=== PATIENT | female | born 1965 | race African-American/Black ===

== ENCOUNTER → 2018-12-27 | Outpatient (CLI) | payer BC ==
--- NOTE | 2018-12-27 14:57 | MM ---
Reason for exam: clinical finding. Last mammogram was performed 1 year and 4 months ago. History: Patient is postmenopausal. Reductions of both breasts, 1986. Taking estrogen beginning at age 51. Taking progesterone beginning at age 51. Taking other hormone beginning at age 51. Physical Findings: Nurse Summary: 1 x 1cm nodule in the right breast at 11 o'clock (nurse ts). MG 3D Diag Mammo W/Cad ALVIN Bilateral CC and MLO view(s) were taken. Prior study comparison: September 02, 2017, bilateral MG 3d diag mammo w/cad ALVIN. August 08, 2014, mammogram. There are scattered fibroglandular densities. Finding: There are typically benign round calcifications in both breasts. There is no discrete abnormality. These results were verbally communicated with the patient and result sheet given to the patient on 12/27/18. ASSESSMENT: Incomplete: need additional imaging evaluation, BI-RAD 0 RECOMMENDATION: Ultrasound of the right breast. (palpable by patient)
--- NOTE | 2018-12-27 14:59 | USB ---
Reason for exam: additional evaluation requested from abnormal screening. History: Patient is postmenopausal. Reductions of both breasts, 1986. Taking estrogen beginning at age 51. Taking progesterone beginning at age 51. Taking other hormone beginning at age 51. US Breast RT Right complete breast ultrasound includes all four quadrants, the retroareolar region and axilla. Finding demonstrates a 1.7 x 1.2 x 0.7cm oval, questionable node at 10 o'clock and a 0.9 x 0.6 x 0.7cm oval, questionable node at 10 o'clock. Possible benign lymph nodes. These results were verbally communicated with the patient and result sheet given to the patient on 12/27/18. ASSESSMENT: Probably benign, BI-RAD 3 RECOMMENDATION: Ultrasound of the right breast in 6 months.
== END ==
LOC: RADMAMWWP 13:00
PROVIDERS: ATTEND Family Medicine
DX: N63.10 Unspecified lump in the right breast, unspecified quadrant (principal)
CPT/HCPCS: 77062; 77066

== ENCOUNTER 2019-01-08 03:10 | Emergency (ER) | payer BC ==
[2019-01-08] MEDS ORDERED: FAMOTIDINE 20 MG/2 ML VIAL IV STA (03:35)
[2019-01-08] MEDS ORDERED: methylPREDNISolone SOD SUCCI 125 MG/2 ML VIAL IV STA (03:35)
--- NOTE | 2019-01-08 05:32 | ED ---
Medical Decision Making - Medical Decision Making Patient care was signed out to me by Keri Khan, nurse practitioner. Briefly, patient is a 53-year-old female. Proximally 1 hour prior to arrival patient began noticing upper lip swelling. Patient does take lisinopril. She's been on this medication for several months. Any tongue swelling or throat swelling. Patient otherwise feels well. Tolerating by mouth and having no troubles with breathing. Patient denies any allergen exposure. She did receive anti-histaminergic agents ordered by nurse practitioner prior to sign out to my care. She states her symptoms of lip swelling has cease to worsen. Patient was observed in emergency department for several hours. Patient clear for discharge. Patient told to not take lisinopril anymore. Told to follow-up with primary care physician for adjustments to blood pressure medications. Patient feels well and is agreeable to discharge. She is told to return to the emergency Department with any worsening symptoms. Told to call 911 if she is experiencing respiratory distress or feeling of impending airway closure. She is understandable and agreeable. Disposition Clinical Impression: Angioedema Disposition: HOME SELF-CARE Instructions (If sedation given, give patient instructions): Angioedema (ED) Is patient prescribed a controlled substance at d/c from ED?: No Referrals: Yessica Herrmann MD [Primary Care Provider] - 1-2 days Time of Disposition: 07:03
--- NOTE | 2019-01-08 05:38 | ED ---
General Adult HPI - General Chief complaint: Allergic Reaction Stated complaint: Swollen Lip Poss Allergic Reaction Time Seen by Provider: 01/08/19 03:31 Source: patient Mode of arrival: ambulatory Limitations: no limitations - History of Present Illness Initial comments: 53-year-old female patient presents to the emergency department today for evaluation of upper lip swelling. Patient states she woke from sleep around 1:00 and her upper lip was quite swollen and enlarged. Patient states prior to going to sleep she did notice some burning and tingling to the left however there is no swelling present. Patient states she did take Benadryl around 1:15 this morning. States it has not improved her symptoms at all. Patient states the only thing she had to eat today was Cheetos and steak which she has had both in the past. States that she does take lisinopril last dose being around 11:30 this morning. Patient does have a family member who has had angioedema from lisinopril in the past. She denies exposure to any other new substances. She denies any tongue or throat swelling. Denies any difficulty breathing. Denies any rash. Patient denies any recent fever, chills, chest pain, abdominal pain, nausea, vomiting, diarrhea, constipation, back pain, numbness, tingling, dizziness, weakness, hematuria, dysuria, urinary urgency, urinary frequency, headache, visual changes, or any other complaints. - Related Data Home Medications Medication Instructions Recorded Confirmed Estrogens, Conjugated [Premarin] 0.45 mg PO DAILY 09/05/15 09/05/15 FLUoxetine HCL [Sarafem] 10 mg PO DAILY 09/05/15 09/05/15 Lisinopril [Zestril] 20 mg PO DAILY 09/05/15 09/05/15 Pitavastatin Calcium [Livalo] 0.5 mg PO DAILY 09/05/15 09/05/15 Allergies Allergy/AdvReac Type Severity Reaction Status Date / Time Mushroom Allergy Itching Verified 01/08/19 03:18 shellfish derived [Shrimp] Allergy Itching Verified 01/08/19 03:18 tomato Allergy Itching Verified 01/08/19 03:18 cigarette smoke AdvReac Swelling Verified 01/08/19 03:18 Review of Systems ROS Statement: Those systems with pertinent positive or pertinent negative responses have been documented in the HPI. ROS Other: All systems not noted in ROS Statement are negative. Past Medical History Past Medical History: Hyperlipidemia, Hypertension History of Any Multi-Drug Resistant Organisms: None Reported Past Surgical History: Adenoidectomy, Section, Hysterectomy, Tonsillectomy Additional Past Surgical History / Comment(s): breast reduction, tummy tuck Past Psychological History: No Psychological Hx Reported Smoking Status: Never smoker Past Alcohol Use History: Occasional Past Drug Use History: None Reported General Exam Limitations: no limitations General appearance: alert, in no apparent distress, other (Physical well- developed, well-nourished adult female patient in no acute distress. Vital signs upon presentation are temperature 98.3F, pulse 64, respirations 16, blood pressure 140/67, pulse ox 98% on room air.) Eye exam: Present: normal appearance, PERRL, EOMI. Absent: scleral icterus, conjunctival injection, periorbital swelling ENT exam: Present: normal oropharynx, mucous membranes moist, other (Angioedema to the upper lip). Absent: normal exam Respiratory exam: Present: normal lung sounds bilaterally. Absent: respiratory distress, wheezes, rales, rhonchi, stridor Cardiovascular Exam: Present: regular rate, normal rhythm, normal heart sounds. Absent: systolic murmur, diastolic murmur, rubs, gallop, clicks GI/Abdominal exam: Present: soft, normal bowel sounds. Absent: distended, tenderness, guarding, rebound, rigid Neurological exam: Present: alert, oriented X3, CN II-XII intact Psychiatric exam: Present: normal affect, normal mood Skin exam: Present: warm, dry, intact, normal color. Absent: rash Course Vital Signs 01/08/19 01/08/19 03:12 07:02 Temperature 98.3 F 98.5 F Pulse Rate 64 66 Respiratory 16 17 Rate Blood Pressure 140/67 160/91 O2 Sat by Pulse 98 98 Oximetry Medical Decision Making - Medical Decision Making Care was handed over to my attending Dr. Ho 0600 to follow until disposition. Disposition Clinical Impression: Angioedema Disposition: HOME SELF-CARE Instructions (If sedation given, give patient instructions): Angioedema (ED) Is patient prescribed a controlled substance at d/c from ED?: No Referrals: Yessica Herrmann MD [Primary Care Provider] - 1-2 days
[2019-01-08 07:02] VITALS: BP 160/91; PULSE 66; RESP 17; TEMP 98.5
== END 2019-01-08 07:27 | disposition home or self-care (01) ==
LOC: EC 03:10
DX: T78.3XXA Angioneurotic edema, initial encounter (principal); E78.5 Hyperlipidemia, unspecified; I10 Essential (primary) hypertension; Z84.89 Family history of other specified conditions; Z79.890 Hormone replacement therapy; Z79.899 Other long term (current) drug therapy; Z91.018 Allergy to other foods; Z91.013 Allergy to seafood; Z91.048 Other nonmedicinal substance allergy status
CPT/HCPCS: 99284; 96374; 96375; J2930

== ENCOUNTER → 2019-08-08 | Outpatient (CLI) | payer BC ==
--- NOTE | 2019-08-09 09:05 | USB ---
Reason for exam: follow-up at short interval from prior study. History: Patient is postmenopausal. Reductions of both breasts, 1986. Taking estrogen beginning at age 51. Taking progesterone beginning at age 51. Taking other hormone beginning at age 51. Physical Findings: Nurse Summary: 1cm nodule at 9 o'clock and 10 o'clock (nurse dw). US Breast Limited RT Right limited breast ultrasound including focal area of concern, retroareolar and axilla demonstrates a 0.9 x 0.4 x 0.5cm lymph node at 10 o'clock and a 1.0 x 0.5 x 0.5cm lymph node at 10 o'clock. These results were verbally communicated with the patient and result sheet given to the patient on 08/08/19. ASSESSMENT: Benign, BI-RAD 2 RECOMMENDATION: Routine screening mammogram of both breasts in 4 months. Back on schedule for December 2019.
== END | disposition home or self-care (01) ==
LOC: RADUSWWP 14:27
PROVIDERS: ATTEND Family Medicine
DX: R92.8 Other abnormal and inconclusive findings on diagnostic imaging of breast (principal); R92.2 Inconclusive mammogram

== ENCOUNTER 2020-08-18 23:09 | Observation (INO) | payer BC ==
[2020-08-18] MEDS ORDERED: ASPIRIN 81 MG PO STA (23:36)
[2020-08-18] MEDS ORDERED: SODIUM CHLORIDE 0.9% 500 ML 500 ML IV STA (23:37)
[2020-08-18] MEDS ORDERED: PANTOPRAZOLE 40 MG/10 ML VIAL IVP STA (23:37)
[2020-08-19 00:08] LABS: Basophils % (A) 0 %; Eosinophils # (A) 0.2 k/uL (0-0.7); Eosinophils % (A) 2 %; HCT 36.8 % (34.0-46.0); HGB 11.5 gm/dL (11.4-16.0); Lymphocytes # (A) 3.9 k/uL (1.0-4.8); Lymphocytes % (A) 40 %; MCH 28.1 pg (25.0-35.0); MCHC 31.3 g/dL (31.0-37.0); MCV 89.9 fL (80.0-100.0); Mean Platelet Volume 7.1; Monocytes # (A) 0.5 k/uL (0-1.0); Monocytes % (A) 5 %; Neutrophils # (A) 5.1 k/uL (1.3-7.7); Neutrophils % (A) 52 %; Platelet Count 304 k/uL (150-450); RDW 14.5 % (11.5-15.5); WBC 9.9 k/uL (3.8-10.6)
[2020-08-19 00:20] LABS: INR 0.9 (<1.2); Partial Thromboplastin Time 25.8 sec (22.0-30.0); Prothrombin Time 9.6 sec (9.0-12.0)
[2020-08-19 00:22] LABS: ALT <6 U/L (4-34); AST 17 U/L (14-36); African American GFR (CKD) >90 (>60 ml/min/1.73 sqM); Albumin 3.6 g/dL (3.5-5.0); Alkaline Phosphatase 65 U/L (38-126); Anion Gap 3 mmol/L; Blood Urea Nitrogen 11 mg/dL (7-17); Calcium 9.5 mg/dL (8.4-10.2); Carbon Dioxide 25 mmol/L (22-30); Chloride 108 mmol/L (98-107); Glucose 102 mg/dL (74-99); Non-African American GFR(CKD) >90 (>60 ml/min/1.73 sqM); Sodium 136 mmol/L (137-145); Total Bilirubin 0.3 mg/dL (0.2-1.3); Total Protein 6.6 g/dL (6.3-8.2)
--- NOTE | 2020-08-19 00:28 | XR ---
EXAM: XR Chest, 2 Views CLINICAL HISTORY: ITS.REASON XR Reason: Chest Pain TECHNIQUE: Frontal and lateral views of the chest. COMPARISON: 09/06/2012. FINDINGS: Lungs: The lungs are well aerated. Pleural space: Unremarkable. No pneumothorax. Heart: Cardiomediastinal silhouette unremarkable. Mediastinum: See above. Bones/joints: Osteopenia. Very gentle levoscoliosis of the thoracic spine. IMPRESSION: No active disease.
--- NOTE | 2020-08-19 00:45 | ED ---
Chest Pain HPI - General Chief Complaint: Chest Pain Stated Complaint: Chest Pain Time Seen by Provider: 08/18/20 23:24 Source: patient Mode of arrival: wheelchair - History of Present Illness Initial Comments: Patient is a 55-year-old female presenting to the emergency Department with complaints of intermittent chest pain has been going on for the last 2-3 days. Patient states she feels like it's located at the center of her chest, lower near her epigastric area but also some radiation to the left side of her chest. Patient states it happened again this evening and it was more severe in nature so she decided to come in to the ER to be seen. Patient states that when she has been eating or drinking she feels "a lump in the middle of her chest." She states she doesn't feel A pain or burning sensation, just a "different sensation." She denies history of GERD. She denies any abdominal pain except for some mild epigastric discomfort. She denies any recent fever, chills, shortness of breath, chest congestion. She has no further complaints at this time. Upon arrival to the ER her vital signs are stable. - Related Data Home Medications Medication Instructions Recorded Confirmed Estrogens, Conjugated [Premarin] 0.45 mg PO DAILY 09/05/15 09/05/15 FLUoxetine HCL [Sarafem] 10 mg PO DAILY 09/05/15 09/05/15 Pitavastatin Calcium [Livalo] 0.5 mg PO DAILY 09/05/15 09/05/15 lisinopriL [Zestril] 20 mg PO DAILY 09/05/15 09/05/15 Allergies Allergy/AdvReac Type Severity Reaction Status Date / Time Mushroom Allergy Itching Verified 01/08/19 03:18 shellfish derived [Shrimp] Allergy Itching Verified 01/08/19 03:18 tomato Allergy Itching Verified 01/08/19 03:18 cigarette smoke AdvReac Swelling Verified 01/08/19 03:18 Review of Systems ROS Statement: Those systems with pertinent positive or pertinent negative responses have been documented in the HPI. ROS Other: All systems not noted in ROS Statement are negative. EKG Findings - EKG Comments: EKG Findings:: Normal sinus rhythm, normal ECG, no signs of acute ischemia. Ventricular rate 66, OK interval 148, QTC 416. Past Medical History Past Medical History: Hyperlipidemia, Hypertension History of Any Multi-Drug Resistant Organisms: None Reported Past Surgical History: Adenoidectomy, Section, Hysterectomy, Tonsillectomy Additional Past Surgical History / Comment(s): breast reduction, tummy tuck Past Psychological History: No Psychological Hx Reported Smoking Status: Never smoker Past Alcohol Use History: Occasional Past Drug Use History: Marijuana General Exam - General Exam Comments Initial Comments: GENERAL: Patient is well-developed and well-nourished. Patient is nontoxic and in no acute distress. HEAD: Atraumatic, normocephalic. EYES: Pupils equal round and reactive to light, extraocular movements intact, sclera anicteric, conjunctiva are normal. Eyelids were unremarkable. ENT: TMs normal, nares patent, oropharynx clear without exudates. Moist mucous membranes. NECK: Normal range of motion, supple without lymphadenopathy or JVD. LUNGS: Unlabored respirations. Breath sounds clear to auscultation bilaterally and equal. No wheezes rales or rhonchi. HEART: Regular rate and rhythm without murmurs, rubs or gallops. ABDOMEN: Soft, nontender, normoactive bowel sounds. No guarding, no rebound. No masses appreciated. : Deferred MUSCULOSKELETAL: Normal extremities with adequate strength and normal range of motion, no pitting or edema. No clubbing or cyanosis. NEUROLOGICAL: Patient is alert and oriented x 3. Motor and sensory are also intact. Cranial nerves II through XII grossly intact. Symmetrical smile. Normal speech, normal gait. PSYCH: Normal mood, normal affect. SKIN: Warm, Dry, normal turgor, no rashes or lesions noted. Course Vital Signs 08/18/20 08/19/20 23:17 01:00 Temperature 98.7 F 97.5 F L Pulse Rate 72 61 Respiratory 18 14 Rate Blood Pressure 152/86 140/84 O2 Sat by Pulse 98 99 Oximetry Chest Pain [facility] Patient is a 55-year-old female here for increasing chest pain over the past 2-3 days, as well as some mild epigastric pain and nausea. Her EKG is normal today . Her exam is unremarkable. Her vital signs are stable. Her chest x-ray reveals no acute abnormalities. Lab work shows no acute abnormality, troponin is normal. Given patient's symptoms, I did recommend admission for serial troponins and cardiac consult. Patient is agreeable with this plan of care. Patient was accepted by Dr. Abad. Case discussed with Dr. Sullivan. Disposition Clinical Impression: Chest pain Disposition: ADMITTED IP TO THIS HOSP Condition: Stable Decision Date: 08/19/20 Decision Time: 01:19
[2020-08-19] MEDS ORDERED: NITROGLYCERIN SL TABS 0.4 MG TAB SUBLINGUAL PRN (01:17)
[2020-08-19] MEDS ORDERED: tiZANidine 4 MG TAB PO PRN (08:55)
[2020-08-19] MEDS ORDERED: ALPRAZolam 0.25 MG TAB PO PRN (08:55)
[2020-08-19] MEDS ORDERED: amLODIPine 5 MG TAB PO SCH (09:00)
[2020-08-19] MEDS ORDERED: ATORVASTATIN 10 MG TAB PO SCH (09:00)
[2020-08-19] MEDS ORDERED: PREGABALIN 50 MG CAP PO SCH (09:00)
[2020-08-19 09:04] VITALS: RESP 18
[2020-08-19 09:15] VITALS: BP 142/71; PULSE 67; TEMP 97.7
--- NOTE | 2020-08-19 10:02 | P.CRDCN ---
<Ariela Sanchez - Last Filed: 08/19/20 09:59> History of Present Illness Consult date: 08/19/20 History of present illness: CHIEF COMPLAINT: chest pain HISTORY OF PRESENT ILLNESS: This is a 55-year old female with a past medical history significant for hypertension. Patient does not follow with a spud driller. She denies previous cardiac history. We have been asked to see the patient in consultation for chest pain. Patient reports she has been having chest pain intermittently for the last two days. She reports that she initially thought she was having heartburn. She states the pain came on when she was sitting watching TV. She denies having pain like this in the past. She states pain is located near the epigastric region and radiates under her left breast and into her back. She reports some mild nausea and shortness of breath. She d enies any diaphoresis. She describes the pain as a sharp pain. No pain with palpation. Patient reports the pain is worse with deep inspiration. She denies any heavy lifting recently. DIAGNOSTICS: EKG reveals sinus rhythm Chest xray negative for acute process Laboratory data: WBC 9.9. Hemoglobin 11.1. Platelet count 304. Sodium 136. Potassium 4.0. BUN 11. Creatinine 0.72. Magnesium 2.0. Troponin negative 3. Current home cardiac medications include Norvasc 5 mg daily REVIEW OF SYSTEMS: At the time of my exam: CONSTITUTIONAL: Denies fever or chills. HEENT: Denies blurred vision, vision changes, or eye pain. Denies hemoptysis CARDIOVASCULAR: Denies chest pain, orthopnea, PND or palpitations RESPIRATORY: No shortness of breath. GASTROINTESTINAL: Denies abdominal pain. Denies nausea or vomiting. HEMATOLOGIC: Denies bleeding disorders. GENITOURINARY: Denies any blood in urine. SKIN: Denies pruitis. Denies rash. PHYSICAL EXAM: VITAL SIGNS: Reviewed. GENERAL: Well-developed in no acute distress. HEENT: Head is normocephalic. Pupils are equal, round. Sclerae anicteric. Mucous membranes of the mouth are moist. Neck supple. No JVD or thyromegaly LUNGS: Respirations even and unlabored. Lungs essentially clear to auscultation bilaterally. HEART: Regular rate and rhythm. S1 and S2 heard. ABDOMEN: Soft. Nondistended. Nontender. EXTREMITIES: Normal range of motion. No clubbing or cyanosis. Peripheral puls es intact. No lower extremity edema NEUROLOGIC: Awake and alert. Oriented x 3. ASSESSMENT: Chest pain, no evidence of acute coronary syndrome Hypertension PLAN: Resume home cardiac medications Obtain 2-D echo to assess cardiac structure and function Patient to undergo stress echo today to assess for reversible ischemia. If negative, patient may be discharged home today from a cardiac perspective. Nurse practitioner note has been reviewed by physician. Signing provider agrees with the documented findings, assessment, and plan of care. Past Medical History Past Medical History: Hyperlipidemia, Hypertension History of Any Multi-Drug Resistant Organisms: None Reported Past Surgical History: Adenoidectomy, Section, Hysterectomy, Tonsillectomy Additional Past Surgical History / Comment(s): breast reduction, tummy tuck Past Psychological History: No Psychological Hx Reported Smoking Status: Never smoker Past Alcohol Use History: Occasional Past Drug Use History: Marijuana Medications and Allergies Home Medications Medication Instructions Recorded Confirmed Type ALPRAZolam [Xanax] 0.25 mg PO TID PRN 08/19/20 08/19/20 History Biotin 5 mg PO DAILY 08/19/20 08/19/20 History Doxepin HCl 75 mg PO HS PRN 08/19/20 08/19/20 History Ergocalciferol [Vitamin D2 50,000 unit PO MALIN 08/19/20 08/19/20 History (DRISDOL)] Estrogens, Conjugated [Premarin] 0.625 mg PO DAILY 08/19/20 08/19/20 History Magnesium Gluconate [Magonate] 500 mg PO DAILY 08/19/20 08/19/20 History Naproxen Sodium [Aleve] 220 mg PO Q12HR #14 tab 08/19/20 Rx Pitavastatin Calcium [Livalo] 2 mg PO DAILY 08/19/20 08/19/20 History Pregabalin [Lyrica] 50 mg PO BID 08/19/20 08/19/20 History amLODIPine [Norvasc] 5 mg PO DAILY 08/19/20 08/19/20 History tiZANidine HCL [Zanaflex] 2 mg PO Q8H PRN 08/19/20 08/19/20 History Allergies Allergy/AdvReac Type Severity Reaction Status Date / Time Mushroom Allergy Itching Verified 08/19/20 07:50 shellfish derived [Shrimp] Allergy Itching Verified 08/19/20 07:50 tomato Allergy Itching Verified 08/19/20 07:50 cigarette smoke AdvReac Swelling Verified 08/19/20 07:50 Physical Exam Vitals: Vital Signs Temp Pulse Pulse Resp BP BP Pulse Ox 08/19/20 02:30 62 08/19/20 01:46 97.7 F 62 16 135/65 97 08/19/20 01:00 97.5 F L 61 14 140/84 99 08/18/20 23:17 98.7 F 72 18 152/86 98 Intake and Output 08/18/20 08/19/20 08/19/20 22:59 06:59 14:59 Other: # Voids 1 Weight 86.183 kg Results 08/18/20 23:57 08/18/20 23:57 Cardiac Enzymes 08/18/20 08/18/20 08/19/20 Range/Units 23:57 23:57 02:42 AST 17 (14-36) U/L Troponin I <0.012 <0.012 (0.000-0.034) ng/mL 08/19/20 Range/Units 06:12 AST (14-36) U/L Troponin I <0.012 (0.000-0.034) ng/mL Coagulation 08/18/20 Range/Units 23:57 PT 9.6 (9.0-12.0) sec APTT 25.8 (22.0-30.0) sec CBC 08/18/20 Range/Units 23:57 WBC 9.9 (3.8-10.6) k/uL RBC 4.10 (3.80-5.40) m/uL Hgb 11.5 (11.4-16.0) gm/dL Hct 36.8 (34.0-46.0) % Plt Count 304 (150-450) k/uL Comprehensive Metabolic Panel 08/18/20 Range/Units 23:57 Sodium 136 L (137-145) mmol/L Potassium 4.0 (3.5-5.1) mmol/L Chloride 108 H (98-107) mmol/L Carbon Dioxide 25 (22-30) mmol/L BUN 11 (7-17) mg/dL Creatinine 0.72 (0.52-1.04) mg/dL Glucose 102 H (74-99) mg/dL Calcium 9.5 (8.4-10.2) mg/dL AST 17 (14-36) U/L ALT <6 (4-34) U/L Alkaline Phosphatase 65 (38-126) U/L Total Protein 6.6 (6.3-8.2) g/dL Albumin 3.6 (3.5-5.0) g/dL Current Medications Generic Name Dose Route Start Last Admin Trade Name Freq PRN Reason Stop Dose Admin Aspirin 325 mg 08/20/20 09:00 Aspirin 325 Mg Tab PO DAILY [facility] Nitroglycerin 0.4 mg 08/19/20 01:17 Nitroglycerin Sl Tabs 0.4 Mg Tab SUBLINGUAL Q5M PRN Chest Pain Intake and Output 08/18/20 08/19/20 08/19/20 22:59 06:59 14:59 Other: # Voids 1 Weight 86.183 kg 08/18/20 23:57 08/18/20 23:57 <Taz Joshi - Last Filed: 08/19/20 11:56> Physical Exam Vitals: Vital Signs Temp Pulse Pulse Resp BP BP Pulse Ox 08/19/20 09:00 97.7 F 67 18 142/71 99 08/19/20 02:30 62 08/19/20 01:46 97.7 F 62 16 135/65 97 08/19/20 01:00 97.5 F L 61 14 140/84 99 08/18/20 23:17 98.7 F 72 18 152/86 98 Intake and Output 08/18/20 08/19/20 08/19/20 22:59 06:59 14:59 Other: # Voids 1 Weight 86.183 kg Results 08/18/20 23:57 08/18/20 23:57 Cardiac Enzymes 08/18/20 08/18/20 08/19/20 Range/Units 23:57 23:57 02:42 AST 17 (14-36) U/L Troponin I <0.012 <0.012 (0.000-0.034) ng/mL 08/19/20 Range/Units 06:12 AST (14-36) U/L Troponin I <0.012 (0.000-0.034) ng/mL Coagulation 08/18/20 Range/Units 23:57 PT 9.6 (9.0-12.0) sec APTT 25.8 (22.0-30.0) sec CBC 08/18/20 Range/Units 23:57 WBC 9.9 (3.8-10.6) k/uL RBC 4.10 (3.80-5.40) m/uL Hgb 11.5 (11.4-16.0) gm/dL Hct 36.8 (34.0-46.0) % Plt Count 304 (150-450) k/uL Comprehensive Metabolic Panel 08/18/20 Range/Units 23:57 Sodium 136 L (137-145) mmol/L Potassium 4.0 (3.5-5.1) mmol/L Chloride 108 H (98-107) mmol/L Carbon Dioxide 25 (22-30) mmol/L BUN 11 (7-17) mg/dL Creatinine 0.72 (0.52-1.04) mg/dL Glucose 102 H (74-99) mg/dL Calcium 9.5 (8.4-10.2) mg/dL AST 17 (14-36) U/L ALT <6 (4-34) U/L Alkaline Phosphatase 65 (38-126) U/L Total Protein 6.6 (6.3-8.2) g/dL Albumin 3.6 (3.5-5.0) g/dL Current Medications Generic Name Dose Route Start Last Admin Trade Name Freq PRN Reason Stop Dose Admin Alprazolam 0.25 mg 08/19/20 08:55 Alprazolam 0.25 Mg Tab PO TID PRN Anxiety Amlodipine Besylate 5 mg 08/19/20 09:00 Amlodipine 5 Mg Tab PO DAILY [facility] Atorvastatin Calcium 10 mg 08/19/20 09:00 Atorvastatin 10 Mg Tab PO DAILY [facility] Dobutamine HCl/Dextrose 500 mg 250 mls @ 25.855 mls/hr 08/19/20 11:15 / IV Solution IV 08/19/20 20:55 .[id number] ONE Protocol 10 MCG/KG/MIN Nitroglycerin 0.4 mg 08/19/20 01:17 Nitroglycerin Sl Tabs 0.4 Mg Tab SUBLINGUAL Q5M PRN Chest Pain Pregabalin 50 mg 08/19/20 09:00 Pregabalin 50 Mg Cap PO BID [facility] Tizanidine HCl 2 mg 10/19/20 08:55 Tizanidine 4 Mg Tab PO Q8H PRN Muscle Spasm Intake and Output 08/18/20 08/19/20 08/19/20 22:59 06:59 14:59 Other: # Voids 1 Weight 86.183 kg 08/18/20 23:57 08/18/20 23:57
[2020-08-19] MEDS ORDERED: DOBUTamine DRIP for NUC MED 500 MG in DEXTROSE/WATER 1 250ML.BAG IV ONE (11:15)
[2020-08-19] MEDS ORDERED: ATROPINE SULFATE 0.1 MG/ML 10ML SYRINGE ONE (11:45)
[2020-08-19] MEDS ORDERED: METOPROLOL TARTRATE 5 MG/5 ML VIAL IVP ONE (11:45)
--- NOTE | 2020-08-19 12:19 | P.HPIM ---
History of Present Illness H&P Date: 08/19/20 Chief Complaint: chest pain HISTORY AND PHYSICAL AND DISCHARGE SUMMARY: HISTORY OF PRESENT ILLNESS This is a 55-year-old black female patient of Dr. Herrmann with PMH of hypertension, hyperlipidemia, history of anemia, chronic back pain, diverticulitis, seasonal ALLERGIES, generalized anxiety disorder, recent surgery in June for hemorrhoids. Patient had onset of low sternal chest pain that started on Wednesday evening. She had been to a wine tasting and had also smoked marijuana on that evening. She denies any worsening of pain with exertion. It has been coming on and off and the mother lingered is for half hour. She also feels a somewhat in her back. The pain Waking her up all through the night. She took Rolaids which did not help. Drinking cold liquids makes her pain worse. She denies having any fever or chills, no palpitations She denies any exertional activity or food that made it worse. She had stress testing done 20 years ago which was normal. Patient came into [facility] emergency center for evaluation. CBC unremarkable. Sodium 136, potassium 4.0, chloride 108, CO2 25, BUN 11 creat inine 0.72, blood sugar 102. Liver function tests normal. Troponin negative on 3 draws. Chest x-ray showed no acute findings. Patient placed on the observation unit and cardiology consult requested. Echocardiogram reveals EF of 55-60%, borderline concentric left ventricular hypertrophy, trace mitral regurgitation, trace tricuspid regurgitation. Dobutamine Stress echocardiogram was normal. Patient discharged home in stable condition. REVIEW OF SYSTEMS Constitutional: No fever, no chills, no night sweats. No weight change. No weakness, fatigue or lethargy. EENT: No headache. No blurred vision or double vision, no loss of vision. No loss of Hearing, no ringing in the ears, no dizziness. No nasal drainage or congestion. No epistaxis. No sore throat. Lungs: No shortness of breath, cough, no sputum production. No wheezing. Cardiovascular: No chest pain, no lower extremity edema. No palpitations. No paroxysmal nocturnal dyspnea. No orthopnea. No lightheadedness or dizziness. No syncopal episodes. Abdominal: No abdominal pain. No nausea, vomiting. No diarrhea. No constipation. No bloody or tarry stools. No loss of appetite. Genitourinary: No dysuria, increased frequency, urgency. No urinary retention. Musculoskeletal: No myalgias. No muscle weakness, no gait dysfunction, no frequent falls. No back pain. No neck pain. Integumentary: No wounds, no lesions. No rash or pruritus. Neurologic: No aphasia. No facial droop. No change in mentation. No head injury. No headache. No paralysis. No paresthesia. Psychiatric: No depression. No anxiety. Endocrine: No abnormal blood sugars. No weight change. SOCIAL HISTORY The patient is a lifelong nonsmoker. She drinks alcohol occasionally. She uses marijuana occasionally and last intake was on Wednesday. She works for [employer] remotely at home. FAMILY HISTORY Father at age 83. Mother at age 72 from lung cancer. Patient has one brother with diabetes. Patient is a total of 3 sisters. One sister has lupus and is being worked up for breast cancer. Other 2 sisters have no major medical problems. Patient is 2 children with no major medical problems. PHYSICAL EXAMINATION Gen: This is a 55-year-old black female. She is resting in bed appears to be comfortable and in no acute distress. HEENT: Head is atraumatic, normocephalic. Pupils equal, round. Sclerae is anicteric. NECK: Supple. No JVD. No lymphadenopathy. No thyromegaly. LUNGS: Clear to auscultation. No wheezes or rhonchi. No intercostal retractions. Positive chest wall tenderness. HEART: Regular rate and rhythm. No murmur. ABDOMEN: Soft. Bowel sounds are present. No masses. No tenderness. EXTREMITIES: No pedal edema. No calf tenderness. Dorsalis pedis +2 bilaterally. NEUROLOGICAL: Patient is awake, alert and oriented x3. Cranial nerves 2 through 12 are grossly intact. ASSESSMENT AND PLAN 1. Chest pain, most likely secondary to costochondritis. Cardiology consult appreciated. Echocardiogram. Stress test. Aleve 220 mg twice daily. 2. Hypertension. Continue Norvasc 5 mg daily. 3. Hyperlipidemia. Continue atorvastatin 10 mg daily. 4. Generalized anxiety disorder. Continue Xanax or 0.5 mg 3 times daily as needed. 5. Chronic back pain. Continue Zanaflex 2 mg 3 times daily as needed, Lyrica 50 mg twice daily. 6. DVT prophylaxis. Early ambulation. Patient placed as Observation status. Discharge plan HOME. Impression and plan of care have been directed as dictated by the signing physician. Alessandra Willett nurse practitioner acting as scribe for signing physician. Past Medical History Past Medical History: Hyperlipidemia, Hypertension History of Any Multi-Drug Resistant Organisms: None Reported Past Surgical History: Adenoidectomy, Section, Hysterectomy, Tonsillectomy Additional Past Surgical History / Comment(s): breast reduction, tummy tuck Past Psychological History: No Psychological Hx Reported Smoking Status: Never smoker Past Alcohol Use History: Occasional Past Drug Use History: Marijuana Medications and Allergies Home Medications Medication Instructions Recorded Confirmed Type ALPRAZolam [Xanax] 0.25 mg PO TID PRN 08/19/20 08/19/20 History Biotin 5 mg PO DAILY 08/19/20 08/19/20 History Doxepin HCl 75 mg PO HS PRN 08/19/20 08/19/20 History Ergocalciferol [Vitamin D2 50,000 unit PO MALIN 08/19/20 08/19/20 History (DRISDOL)] Estrogens, Conjugated [Premarin] 0.625 mg PO DAILY 08/19/20 08/19/20 History Magnesium Gluconate [Magonate] 500 mg PO DAILY 08/19/20 08/19/20 History Naproxen Sodium [Aleve] 220 mg PO Q12HR #14 tab 08/19/20 Rx Pitavastatin Calcium [Livalo] 2 mg PO DAILY 08/19/20 08/19/20 History Pregabalin [Lyrica] 50 mg PO BID 08/19/20 08/19/20 History amLODIPine [Norvasc] 5 mg PO DAILY 08/19/20 08/19/20 History tiZANidine HCL [Zanaflex] 2 mg PO Q8H PRN 08/19/20 08/19/20 History Allergies Allergy/AdvReac Type Severity Reaction Status Date / Time Mushroom Allergy Itching Verified 08/19/20 07:50 shellfish derived [Shrimp] Allergy Itching Verified 08/19/20 07:50 tomato Allergy Itching Verified 08/19/20 07:50 cigarette smoke AdvReac Swelling Verified 08/19/20 07:50 Physical Exam Vitals: Vital Signs Temp Pulse Pulse Resp BP BP Pulse Ox 08/19/20 02:30 62 08/19/20 01:46 97.7 F 62 16 135/65 97 08/19/20 01:00 97.5 F L 61 14 140/84 99 08/18/20 23:17 98.7 F 72 18 152/86 98 Intake and Output 08/18/20 08/19/20 08/19/20 22:59 06:59 14:59 Other: # Voids 1 Weight 86.183 kg Results CBC & Chem 7: 08/18/20 23:57 08/18/20 23:57 Labs: Abnormal Lab Results - Last 24 Hours (Table) 08/18/20 Range/Units 23:57 Sodium 136 L (137-145) mmol/L Chloride 108 H (98-107) mmol/L Glucose 102 H (74-99) mg/dL Thrombosis Risk Factor Assmnt - Choose All That Apply Each Factor Represents 1 point: Age 41-60 years, Obesity (BMI >25) Other congenital or acquired thrombophilia - If yes, enter type in comment: No Thrombosis Risk Factor Assessment Total Risk Factor Score: 2 Thrombosis Risk Factor Assessment Level: Low Risk
--- NOTE | 2020-08-19 13:00 | ECHOF ---
Referral Reason:chest pain MEASUREMENTS -------- HEIGHT: 170.2 cm WEIGHT: 86.2 kg BP: 135/65 IVSd: 1.1 cm (0.6 - 1.1) LVIDd: 3.1 cm (3.9 - 5.3) LVPWd: 1.3 cm (0.6 - 1.1) IVSs: 1.6 cm LVIDs: 2.2 cm LVPWs: 1.5 cm Ao Diam: 2.6 cm (2.0 - 3.7) AV Cusp: 1.6 cm (1.5 - 2.6) LA Diam: 3.1 cm (2.7 - 3.8) MV EXCURSION: 10.759 mm (> 18.000) MV EF SLOPE: 73 mm/s (70 - 150) EPSS: 0.7 cm MV E Edmundo: 0.64 m/s MV DecT: 253 ms MV A Edmundo: 0.59 m/s MV E/A Ratio: 1.08 RAP: 5.00 mmHg RVSP: 17.13 mmHg FINDINGS -------- This was a technically difficult study with suboptimal views. The left ventricular size is normal. There is borderline concentric left ventricular hypertrophy. Overall left ventricular systolic function is normal with, an EF between 55 - 60 %. The right ventricle is normal in size. The left atrial size is normal. The right atrial size is normal. Lumason used The aortic valve is trileaflet and appears structurally normal. The mitral valve is normal. There is trace mitral regurgitation. The tricuspid valve appears structurally normal. Trace tricuspid regurgitation present. Right jas tricular systolic pressure is normal at < 35 mmHg. Pulmonic valve appears structurally normal. The aortic root size is normal. IVC Not well visulized. There is no pericardial effusion. CONCLUSIONS -------- 1. The left ventricular size is normal. 2. There is borderline concentric left ventricular hypertrophy. 3. Overall left ventricular systolic function is normal with, an EF between 55 - 60 %. 4. There is trace mitral regurgitation. 5. Trace tricuspid regurgitation present. 6. There is no pericardial effusion. EMPLOYMENT INSTRUCTIONAL ASSOCIATE: Gauri Moffett [facility]
--- NOTE | 2020-08-19 13:36 | P.STRESS ---
- Stress Test Note Stress Test Results/Findings: Exam Performed: dobutamine stress echo with con Exam Date: 08/19/20 Reason for Exam: CHEST PAIN Height: 5 ft 7 in Weight: 86.18 kg Protocol: DSE Stage: 5 Duration of Exercise: 14:45 Resting Heart Rate: 67 Resting Blood Pressure: 138/91 Maximum Achieved Heart Rate: 152 Maximum Achieved Blood Pressure: 161/78 85% PMHR: 139 100% PMHR: 164 METS: NA Technologist Comment: Stress Test Results/Findings: Patient underwent dobutamine stress echo with infusion of dobutamine into Stage 4 for a total of 14 minutes 45 seconds. Patient's maximum heart rate was 152 which represented 92% age-predicted maximum heart rate. Stress EKG portion: At baseline patient's EKG showed normal sinus rhythm, or waxes,no significant ST or T wave abnormalities.. At peak dobutamine infusion, EKG showed .[address] depressions in the inferior and lateral leads. Stress echo portion: 2-D echocardiogram was performed in the parasternal long, personal short, apical 2 and apical four-chamber views at rest, low-dose, peak infusion and in recovery. At baseline, echocardiogram showed left ventricular ejection fraction 55% without wall motion abnormalities. With peak infusion, echocardiogram shows improvement in left ventricular ejection fraction, increase contractility, decrease in left ventricular dimension without wall motion abnormalities consistent with a normal response to dobutamine. Conclusions: 1. Normal stress EKG and echo response to dobutamine infusion without any evidence of inducible ischemia.
[2020-08-20] MEDS ORDERED: ASPIRIN 325 MG TAB PO SCH (09:00)
== END 2020-08-19 15:20 | disposition home or self-care (01) ==
LOC: EC 23:09 → 1SOBS 08-19 01:18
PROVIDERS: ADMIT Family Medicine; ATTEND Family Medicine
DX: I08.1 Rheumatic disorders of both mitral and tricuspid valves (principal); Z80.1 Family history of malignant neoplasm of trachea, bronchus and lung; Z82.69 Family history of other diseases of the musculoskeletal system and connective tissue; I10 Essential (primary) hypertension; E78.5 Hyperlipidemia, unspecified; F41.1 Generalized anxiety disorder; G89.29 Other chronic pain; M54.9 Dorsalgia, unspecified; Z90.710 Acquired absence of both cervix and uterus; Z98.891 History of uterine scar from previous surgery; Z98.890 Other specified postprocedural states; Z79.1 Long term (current) use of non-steroidal anti-inflammatories (NSAID); Z79.52 Long term (current) use of systemic steroids; Z79.899 Other long term (current) drug therapy; Z91.013 Allergy to seafood; Z91.018 Allergy to other foods; Z91.048 Other nonmedicinal substance allergy status
CPT/HCPCS: 93005 ×2; 96374; 99285; 36415; 93306; 93351; 80053; 83690; 83735; 84484; 85025; 85610; 85730; 71046; G0378; J1250; J0461; C9113; Q9950

== ENCOUNTER → 2020-12-18 | Outpatient (CLI) | payer BC ==
--- NOTE | 2020-12-18 20:02 | CONS ---
CONSULTATION DATE OF SERVICE: 12/18/2020 This is a 55-year-old lady who has been evaluated in the sleep center for difficulties initiating sleep and for multiple awakenings from sleep. HISTORY OF PRESENT ILLNESS/SLEEP-WAKE EVALUATION: Patient's usual sleep schedule is from 1 or 2 a.m. until 7 or 8 a.m. on weekdays and from 2 or 3 a.m. until 10 a.m. on weekends. She does have problems with falling asleep. She has a TV set in the bedroom. She usually sleeps on the side position. She snores and wakes up from sleep about 4 times with one episode of nocturia. Questionable history of hypnagogical hallucinations. No history of sleep paralysis or cataplexy. In the morning the patient wakes up tired, worries about her sleep. She does not take any naps. [place] Sleepiness Scale is 2. PAST MEDICAL HISTORY: Positive for hypertension, depression, hyperlipidemia, arthritis. PAST SURGICAL HISTORY: Tonsillectomy, hysterectomy, breast reduction surgery, tubal ligation, two C-sections. FAMILY HISTORY: Lung problems, thyroid problems, cancer, stroke. REVIEW OF SYSTEMS: Difficulties initiating sleep and multiple awakenings from sleep. Snoring. PHYSICAL EXAMINATION: GENERAL: A pleasant -[place] lady without distress. VITAL SIGNS: BP 144/72, HR 71, RR 15, height 5 feet 7 inches, weight 189.8 pounds, temperature 98.2, oxygen saturation at room air 94%. HEENT: PERRLA, EOMI. Evaluation of oropharynx showed tongue protrudes midline. Mallampati II. NECK: Supple. No JVD. Thyroid is not palpable. LUNGS: Clear to percussion and to auscultation. Good air exchange. No wheezing or rhonchi. HEART: S1, S2 regular. No murmurs, gallops or rubs. ABDOMEN: Soft and nontender. Bowel sounds are present. No organomegaly appreciated. EXTREMITIES: No clubbing or cyanosis. TUTORIAL LABORATORY SUPERVISOR: Awake, alert, and oriented X3. Cranial nerves 2 to 7 intact. There is no fasciculation or atrophy. noted. No focal deficits observed. IMPRESSION: 1. Snoring, multiple awakenings from sleep; possible obstructive sleep apnea-hypopnea syndrome. 2. Difficulties initiating sleep; psychophysiological insomnia. 3. Hypertension. 4. Depression. 5. Status post tonsillectomy. 6. Status post hysterectomy and ectomy. 7. Status post breast reduction. 8. Hyperlipidemia. 9. Arthritis. PLAN: 1. Home sleep apnea test to check patient's breathing during sleep. 2. I discussed with the patient psychological techniques for treatment of insomnia, including stimulus control, paradoxical intention, worry time, no watching clock, regularizing sleep schedule. 3. Watching and losing weight. 4. No driving if feeling any sleepiness. 5. Sleep hygiene with regular time in bed for 7-1/2 hours. Thank you very much for referring this patient for consultation. Sincerely, Donnie Greco MD, PhD, FAASM Diplomat of [place] [employer] [place] [employer] Customer Counter Associate of [facility] [place] [facility]OD[facility] / ETELVINA: [id number] /
== END | disposition home or self-care (01) ==
LOC: SLEEP 14:07
PROVIDERS: ATTEND Internal Medicine
DX: G47.00 Insomnia, unspecified (principal); I10 Essential (primary) hypertension; F32.9 Major depressive disorder, single episode, unspecified; E78.5 Hyperlipidemia, unspecified; M19.90 Unspecified osteoarthritis, unspecified site; Z90.710 Acquired absence of both cervix and uterus; Z98.890 Other specified postprocedural states; Z90.09 Acquired absence of other part of head and neck
CPT/HCPCS: 99211

== ENCOUNTER → 2021-01-22 | Outpatient (CLI) | payer BC ==
--- NOTE | 2021-01-22 14:04 | SFUN ---
SLEEP CENTER FOLLOW UP NOTE DATE OF SERVICE: 01/22/2021 This 55-year-old lady had been followed in Sleep Center to discuss results of home sleep apnea test and following plan. I discussed results of home sleep apnea test with patient in details. Recording done for 10 hours 42 minutes. Analyzing time 10 hours 34 minutes. Totally, it was documented 36 abnormal respiratory events including 25 apneas. Total apnea-hypopnea index 3.4, but according to the patient she slept during the home test only about 5 hours. Home sleep test does not provide information about how many hours patient in reality slept. If she slept only 5 hours that will make her apnea-hypopnea index around 7 and will be significant to indicate necessity of treatment because she has several other medical problems, which could be related to sleep apnea, hypertension, depression. [place] Sleepiness Scale today is 3. MEDICATIONS: Premarin 0.625 mg once a day, amlodipine 5 mg once a day, Livalo 2 mg once a day, 10 mg once a day. PHYSICAL EXAMINATION: GENERAL: lady without distress. VITAL SIGNS: BP 128/76, HR 73, RR 15, height 5 feet 7 inches, weight 192, temperature 97.8, oxygen saturation at room air 91%. HEENT: PERRLA, EOMI, evaluation of oropharynx showed tongue protrudes midline. NECK: Supple, no JVD. Thyroid is not palpable. LUNGS: Clear to percussion and to auscultation. Good air exchange. No wheezing or rhonchi. HEART: S1, S2 regular. No murmurs, gallops, or rubs. ABDOMEN: Slightly obese. EXTREMITIES: No clubbing or cyanosis. CHEMIST PHYSICAL: Awake, alert, and oriented X3. Cranial nerves 2 to 7 intact. There is no fasciculation or atrophy. noted. No focal deficits observed. IMPRESSION: 1. Possibly false negative results of home sleep apnea test because patient has significant insomnia problems which could be the reason for underestimation of apnea-hypopnea index for obstructive sleep apnea-hypopnea syndrome. 2. Psychophysiological insomnia. 3. Hypertension. 4. Depression. 5. Status post tonsillectomy. 6. Status post hysterectomy. 7. Status post breast reduction. 8. Hyperlipidemia. 9. Arthritis. PLAN: 1. We will proceed with a polysomnogram in the office for evaluation of patient's breathing during sleep. 2. Sleep hygiene with regular time in bed for 7-1/2 hours. 3. Precautions related to driving. No driving if feeling sleepiness. Thank you very much for allowing me to participate in management of your patient. Sincerely, Donnie Greco MD, PhD, FAASM Diplomat of [place] [employer] [place] [employer] Desilverizer of [facility] [place] MMODL / ANGELAN: [id number] /
== END ==
LOC: SLEEP 11:37
PROVIDERS: ATTEND Internal Medicine
DX: G47.33 Obstructive sleep apnea (adult) (pediatric) (principal); F51.04 Psychophysiologic insomnia; I10 Essential (primary) hypertension; F32.9 Major depressive disorder, single episode, unspecified; E78.5 Hyperlipidemia, unspecified; M19.90 Unspecified osteoarthritis, unspecified site; Z98.890 Other specified postprocedural states; Z90.711 Acquired absence of uterus with remaining cervical stump

== ENCOUNTER 2021-04-10 09:11 | Day surgery (SDC) | payer BC ==
[2021-04-10] MEDS ORDERED: ALPRAZolam 0.5 MG TAB PO PRN (09:31)
[2021-04-10 09:44] VITALS: TEMP 98.7
--- NOTE | 2021-04-10 10:40 | US ---
ULTRASOUND GUIDED FNA THYROID BIOPSY: CLINICAL HISTORY: Right thyroid nodule FINDINGS: The procedure was explained to the patient. The risks, complications, benefits and alternatives were discussed and any questions were answered. Informed consent was obtained. Patient was placed supin e on the ultrasound table and prepped and draped in the usual sterile fashion. Utilizing a 25 gauge needle, five passes were made into the requested right thyroid nodule. Patient was stable throughout the procedure. Pathology is pending. All elements of maximal barrier technique were utilized. IMPRESSION: 1. Successful ultrasound guided FNA thyroid biopsy.
[2021-04-10 10:51] VITALS: BP 131/80; PULSE 67; RESP 16
== END 2021-04-10 10:51 | disposition home or self-care (01) ==
LOC: RADPROMAIN 09:11
PROVIDERS: ATTEND Family Medicine
DX: E04.1 Nontoxic single thyroid nodule (principal)
CPT/HCPCS: 10005; 88173; 88305

== ENCOUNTER → 2021-07-24 | Outpatient (CLI) | payer BC ==
--- NOTE | 2021-07-25 11:50 | MR ---
EXAMINATION TYPE: MR lumbar spine wo con DATE OF EXAM: 07/24/2021 COMPARISON: HISTORY: low back pain TECHNIQUE: Multiplanar, multisequence images of the lumbar spine were acquired without IV contrast. L1-L2: Normal disc appearance without desiccation. No herniation, protrusion or disc bulging. No ca nal stenosis is present. Foramina are patent bilaterally. L2-L3: Normal disc appearance without desiccation. No herniation, protrusion or disc bulging. No ca nal stenosis is present. Foramina are patent bilaterally. L3-L4: Normal disc appearance without desiccation. No herniation, protrusion or disc bulging. No ca nal stenosis is present. Foramina are patent bilaterally. L4-L5: Facet arthropathy change with hypertrophy of the ligamentum flavum is present causing posterio r lateral aspect of the thecal sac. No significant foraminal encroachment. L5-S1: There is some facet arthropathy change present. Circumferential extension and practice complex encroaches upon the foramina bilaterally. Posterior extension endplate disc complex may contact the proximal S1 nerve roots, anterior thecal sac. Lumbar segments are intact. No paraspinal masses are identified. Conus medullaris has a normal appe arance. Lumbar vertebral bodies show preserved height and alignment. There is loss of disc height and signal at L5-S1, there is associated endplate discogenic marrow signal change. No significant spinal stenosis. IMPRESSION: Degenerative disc disease and foraminal encroachment L5-S1, correlate for L5, S1 radiculopathies. Fac et arthropathy.
== END | disposition home or self-care (01) ==
LOC: RADMRIMAIN 12:51
PROVIDERS: ATTEND Orthopaedic Surgery
DX: M51.37 Other intervertebral disc degeneration, lumbosacral region (principal); M47.816 Spondylosis without myelopathy or radiculopathy, lumbar region
CPT/HCPCS: 72148

== ENCOUNTER → 2021-08-12 | Outpatient (CLI) | payer BC ==
--- NOTE | 2021-08-12 13:54 | MM ---
Reason for exam: clinical finding. Last mammogram was performed 2 years and 7 months ago. History: Patient is postmenopausal. Reductions of both breasts, 1987. Taking estrogen beginning at age 51. Took progesterone beginning at age 51. Taking other hormone beginning at age 51. Physical Findings: Nurse did not find any significant physical abnormalities on exam. MG 3D Diag Mammo W/Cad ALVIN Bilateral CC and MLO view(s) were taken. Prior study comparison: December 27, 2018, bilateral MG 3d diag mammo w/cad ALVIN. September 02, 2017, bilateral MG 3d diag mammo w/cad ALVIN. There are scattered fibroglandular densities. There are benign appearing round calcifications bilaterally. Benign bilateral axillary lymph nodes redemonstrated. These results were verbally communicated with the patient and result sheet given to the patient on 08/12/21. ASSESSMENT: Incomplete: need additional imaging evaluation, BI-RAD 0 RECOMMENDATION: Ultrasound of the right breast. (palpable)
--- NOTE | 2021-08-12 13:55 | USB ---
Reason for exam: additional evaluation requested from abnormal screening. History: Patient is postmenopausal. Reductions of both breasts, 1986. Taking estrogen beginning at age 51. Took progesterone beginning at age 51. Taking other hormone beginning at age 51. US Breast Limited RT Right limited breast ultrasound including focal area of concern, retroareolar and axilla demonstrates no cystic or solid lesion seen. These results were verbally communicated with the patient and result sheet given to the patient on 08/12/21. ASSESSMENT: Negative, BI-RAD 1 RECOMMENDATION: Routine screening mammogram of both breasts in 1 year. Manage patient on a clinical basis.
== END | disposition home or self-care (01) ==
LOC: RADMAMWWP 09:46
PROVIDERS: ATTEND Family Medicine
DX: R92.1 Mammographic calcification found on diagnostic imaging of breast (principal); Z78.0 Asymptomatic menopausal state
CPT/HCPCS: 77062; 77066

== ENCOUNTER → 2021-11-24 | Outpatient (CLI) | payer BC ==
--- NOTE | 2021-11-24 15:06 | BD ---
EXAMINATION TYPE: Axial Bone Density DATE OF EXAM: 11/24/2021 COMPARISON: Prior DEXA bone scan 2017. CLINICAL HISTORY: Postmenopausal female. Age related osteoporosis. Height: 5 FT 6 1/2 IN Weight: 171 FRAX RISK QUESTIONS: Alcohol (3 or more units per day): NO Family History (Parent hip fracture): NO Glucocorticoids (More than 3mos): NO (Ex: prednisone, prednisolone, methylprednisolone, dexamethasone, and hydrocortisone). History of Fracture in Adulthood: YES Secondary Osteoporosis: 1. Type 1 Diabetes: NO 2. Hyperthyroidism: NODULES 3. Menopause before 45: YES 4. Malnutrition: NO 5. Chronic liver disease: NO Rheumatoid Arthritis: YES Current Tobacco Use: NO RISK FACTORS HISTORY OF: Surgery to Spine/Hip(right/left)/Wrist (right/left): NO Family History of Osteoporosis: NO Active: NO Diet low in dairy products/other sources of calcium: NO Postmenopausal woman: YES Take estrogen and/or progesterone medications: YES How lon-14 YEARS Lost more than 2 inches in height since high school: NO Frequent falls: YES Poor Health: GOOD Hyperparathyroidism: NO Adrenal Insufficiency: NO MEDICATIONS: Additional Medications: CYMBALTA, AMLODIPINE, PREMARIN, FLUOXITINE, CHOLESTEROL MEDS, Additional History: EXAM MEASUREMENTS: Bone mineral densitometry was performed using the [employer] System. Bone mineral density as measured about the Lumbar spine is: ----- L1-L4(G/cm2): 1.418 T Score Values are as follows: ----- L2: 1.9 ----- L3: 2.4 ----- L4: 2.0 ----- L1-L4: 2.0 Bone mineral density has: INCREASED 1.2 % since study of: 2017 Bone mineral density about the R hip (g/cm2): 0.860 Bone mineral density about the L hip (g/cm2): 0.917 T Score values are as follows: -----R Neck: -1.3 -----L Neck: -0.9 -----R Total: -0.9 -----L Total: -0.5 Bone mineral density has: DECREASED -0.5 % since study of: 2017 IMPRESSION: Osteopenia (T Score between -2.5 and -1) remains present. There is slightly increased risk of fracture and the patient may be considered for treatment. Re-Screen 2-5 years. NOTE: T-SCORE=SD OF THE YOUNG ADULT MEAN.
== END | disposition home or self-care (01) ==
LOC: RADBDWWP 12:43
PROVIDERS: ATTEND Family Medicine
DX: M85.851 Other specified disorders of bone density and structure, right thigh (principal); Z78.0 Asymptomatic menopausal state
CPT/HCPCS: 77080

== ENCOUNTER 2022-06-23 09:45 | Inpatient (IN) | payer BC ==
[2022-06-23] MEDS ORDERED: SODIUM CHLORIDE 0.9% 1,000 ML IV STA (10:29)
[2022-06-23] MEDS ORDERED: fentaNYL (PF) 50 MCG/ML 2 ML AMP IVP STA (10:30)
--- NOTE | 2022-06-23 10:30 | ED ---
Abdominal Pain HPI - General Chief Complaint: Abdominal Pain Stated Complaint: ABD Pain,fever,vomiting Time Seen by Provider: 06/23/22 10:16 Source: patient, RN notes reviewed, old records reviewed Mode of arrival: ambulatory Limitations: no limitations - History of Present Illness Initial Comments: This is a pleasant 56-year-old female that presents alert and oriented 4 with complaints of left upper and left mid abdominal pain for 3 days progressively getting worse. Patient states that she feels bloated. She states that the pain radiates into her left back. She does have a history of diverticuli but states that this does not feel like previous diverticulitis diagnosis. She states that she was treated a month ago for urinary tract infection but still has some dysuria. She is a nonsmoker. She has a history of hypertension, hysterectomy, tubal ligation and hemorrhoidectomy. MD Complaint: abdominal pain -: days(s) (3) Location: LUQ, LLQ Radiation: back (left side) Severity scale (1-10): 10 Quality: aching, dull Consistency: constant Improves With: nothing Associated Symptoms: nausea, vomiting Treatments Prior to Arrival: other (Vicodin 7.5 x2) - Related Data Home Medications Medication Instructions Recorded Confirmed amLODIPine [Norvasc] 5 mg PO DAILY 08/19/20 06/23/22 FLUoxetine HCL [PROzac] 20 mg PO DAILY 03/25/21 06/23/22 Clobex Scalp Solution 1 applic TOPICAL HS PRN 06/23/22 06/23/22 DULoxetine HCL [Cymbalta] 60 mg PO DAILY 06/23/22 06/23/22 Ergocalciferol [Vitamin D2 (1250 1,250 mcg PO MALIN 06/23/22 06/23/22 Mcg = 60904 Iu)] HYDROcodone/APAP 7.5-325MG [[place] 1 tab PO Q6H PRN 06/23/22 06/23/22 7.5-325] Naproxen Sodium [Aleve] 440 mg PO DAILY@1400 06/23/22 06/23/22 Pitavastatin Calcium [Livalo] 4 mg PO DAILY 06/23/22 06/23/22 estradioL [Estrace] 0.25 mg PO DAILY 06/23/22 06/23/22 methocarbamoL [Robaxin-750] 750 mg PO TID PRN 06/23/22 06/23/22 Allergies Allergy/AdvReac Type Severity Reaction Status Date / Time cigarette smoke Allergy Swelling Verified 06/23/22 13:15 eyes lisinopril Allergy Swelling Verified 06/23/22 13:15 lips/angioedema Mushroom Allergy Itching Verified 06/23/22 13:15 shellfish derived [Shrimp] Allergy Itching Verified 06/23/22 13:15 Sulfa (Sulfonamide Allergy Unknown Verified 06/23/22 13:15 Antibiotics) tomato Allergy Itching Verified 06/23/22 13:15 Review of Systems ROS Statement: Those systems with pertinent positive or pertinent negative responses have been documented in the HPI. ROS Other: All systems not noted in ROS Statement are negative. Past Medical History Past Medical History: Hyperlipidemia, Hypertension Additional Past Medical History / Comment(s): chronic back pain, thyroid nodules History of Any Multi-Drug Resistant Organisms: None Reported Past Surgical History: Adenoidectomy, Section, Hysterectomy, Tonsillectomy Additional Past Surgical History / Comment(s): breast reduction, tummy tuck, hemorrhoid removal times 2 in June Past Anesthesia/Blood Transfusion Reactions: No Reported Reaction Past Psychological History: No Psychological Hx Reported Smoking Status: Never smoker Past Alcohol Use History: Occasional Past Drug Use History: Marijuana - Past Family History Mother Family Medical History: Cancer Additional Family Medical History / Comment(s): lung Father Family Medical History: COPD Additional Family Medical History / Comment(s): mesothelioma General Exam Limitations: no limitations General appearance: alert, in no apparent distress Head exam: Present: atraumatic Eye exam: Present: normal appearance. Absent: scleral icterus, conjunctival injection, periorbital swelling, periorbital tenderness ENT exam: Present: normal oropharynx, mucous membranes moist Neck exam: Present: full ROM. Absent: tenderness, meningismus, lymphadenopathy Respiratory exam: Present: normal lung sounds bilaterally. Absent: respiratory distress, wheezes, rales, rhonchi, stridor, chest wall tenderness, accessory mu scle use, decreased breath sounds Cardiovascular Exam: Present: tachycardia GI/Abdominal exam: Present: distended, tenderness (Left side and clayton Umbi lical). Absent: rigid Extremities exam: Present: normal capillary refill. Absent: pedal edema Back exam: Present: normal inspection, full ROM. Absent: tenderness, CVA tenderness (R), CVA tenderness (L), rash noted Neurological exam: Present: alert, oriented X3 Psychiatric exam: Present: normal affect, normal mood Skin exam: Present: warm, dry, intact, normal color. Absent: cyanosis, diaphoretic, erythema, petechiae, pallor Course Vital Signs 06/23/22 06/23/22 06/23/22 10:02 11:30 12:46 Temperature 98.2 F Pulse Rate 104 H 89 78 Respiratory 15 15 16 Rate Blood Pressure 91/52 100/59 109/69 O2 Sat by Pulse 99 100 97 Oximetry 06/23/22 06/23/22 13:26 13:59 Temperature 100.5 F H Pulse Rate 134 H 126 H Respiratory 24 18 Rate Blood Pressure 171/88 148/78 O2 Sat by Pulse 98 98 Oximetry - Reevaluation(s) Reevaluation #1: 06/23/22 12:03 Heart reate and blood pressure has improved after IV fluids. Patient is more comfortable after fentanyl dosing. Awaiting CT scan results. Time: 12:03 Reevaluation #2: 06/23/22 13:13 Called to the patient's bedside by nurse, who states that patient is vomiting. Patient states she feels as though her tongue is swollen and is very anxious. T here is no evidence of tongue swelling, airway is open and clear, lung sounds are clear to auscultation. There is no evidence of rash. She was given Benadryl, Solu-Medrol and Pepcid and will be maintained on a vehicle monitor technician closely monitored. Time: 13:13 Medical Decision Making - Medical Decision Making 56-year-old female presents with complaints of left sided abdominal pain for 3 days progressively getting worse, radiates into her left flank. Labs show leukocytosis. Lactic acid is 3.9. BUN 19, creatinine 1.63. Patient was given IV fluids. CT abdomen pelvis shows tiny nonobstructing bilateral renal calculi with mild to moderate left-sided hydronephrosis, delayed excretion due to 4 to 5 mm obstructing calculus in the distal left ureter right before the UVJ Patient will be admitted to the hospital with pyelonephritis, obstructing kidney stone, acute kidney injury. Urology was notified and patient was made NPO for possible stent. Antibiotics were started. Patient and family were notified of results and agreeable to admission. Case was discussed with Dr. Thomas. - Lab Data Result diagrams: 06/23/22 10:52 06/23/22 10:52 Lab Results 06/23/22 06/23/22 06/23/22 Range/Units 10:52 10:52 10:52 WBC 16.6 H (3.8-10.6) k/uL RBC 4.59 (3.80-5.40) m/uL Hgb 12.8 (11.4-16.0) gm/dL Hct 41.6 (34.0-46.0) % MCV 90.7 (80.0-100.0) fL MCH 27.9 (25.0-35.0) pg MCHC 30.7 L (31.0-37.0) g/dL RDW 15.1 (11.5-15.5) % Plt Count 262 (150-450) k/uL MPV 7.8 Neutrophils % 94 % Lymphocytes % 1 % Monocytes % 3 % Eosinophils % 0 % Basophils % 1 % Neutrophils # 15.7 H (1.3-7.7) k/uL Lymphocytes # 0.2 L (1.0-4.8) k/uL Monocytes # 0.5 (0-1.0) k/uL Eosinophils # 0.0 (0-0.7) k/uL Basophils # 0.1 (0-0.2) k/uL Hypochromasia Moderate Sodium 141 (137-145) mmol/L Potassium 3.9 (3.5-5.1) mmol/L Chloride 105 (98-107) mmol/L Carbon Dioxide 20 L (22-30) mmol/L Anion Gap 16 mmol/L BUN 19 H (7-17) mg/dL Creatinine 1.63 H (0.52-1.04) mg/dL Est GFR (CKD-EPI)AfAm 40 (>60 ml/min/1.73 sqM) Est GFR (CKD-EPI)NonAf 35 (>60 ml/min/1.73 sqM) Glucose 115 H (74-99) mg/dL Lactic Ac Sepsis Rflx Plasma Lactic Acid Lee (0.7-2.0) mmol/L Calcium 9.3 (8.4-10.2) mg/dL Total Bilirubin 0.7 (0.2-1.3) mg/dL AST 59 H (14-36) U/L ALT 31 (4-34) U/L Alkaline Phosphatase 114 (38-126) U/L Troponin I (0.000-0.034) ng/mL Total Protein 6.8 (6.3-8.2) g/dL Albumin 3.7 (3.5-5.0) g/dL Amylase 68 (30-110) U/L Lipase 26 (23-300) U/L Urine Color Dark Yellow Urine Appearance Cloudy H (Clear) Urine pH 6.0 (5.0-8.0) Ur Specific [place] 1.030 (1.001-1.035) Urine Protein 2+ H (Negative) Urine Glucose (UA) Negative (Negative) Urine Ketones Trace H (Negative) Urine Blood Trace H (Negative) Urine Nitrite Negative (Negative) Urine Bilirubin 1+ H (Negative) Urine Urobilinogen 8.0 (<2.0) mg/dL Ur Leukocyte Esterase Large H (Negative) Urine RBC 6 H (0-5) /hpf Urine WBC 64 H (0-5) /hpf Ur Squamous Epith Cells 5 H (0-4) /hpf Urine Bacteria Many H (None) /hpf Hyaline Casts 4 H (0-2) /lpf WBC Casts 2 (0) /lpf Urine Mucus Few H (None) /hpf 06/23/22 06/23/22 06/23/22 Range/Units 10:52 10:52 11:23 WBC (3.8-10.6) k/uL RBC (3.80-5.40) m/uL Hgb (11.4-16.0) gm/dL Hct (34.0-46.0) % MCV (80.0-100.0) fL MCH (25.0-35.0) pg MCHC (31.0-37.0) g/dL RDW (11.5-15.5) % Plt Count (150-450) k/uL MPV Neutrophils % % Lymphocytes % % Monocytes % % Eosinophils % % Basophils % % Neutrophils # (1.3-7.7) k/uL Lymphocytes # (1.0-4.8) k/uL Monocytes # (0-1.0) k/uL Eosinophils # (0-0.7) k/uL Basophils # (0-0.2) k/uL Hypochromasia Sodium (137-145) mmol/L Potassium (3.5-5.1) mmol/L Chloride (98-107) mmol/L Carbon Dioxide (22-30) mmol/L Anion Gap mmol/L BUN (7-17) mg/dL Creatinine (0.52-1.04) mg/dL Est GFR (CKD-EPI)AfAm (>60 ml/min/1.73 sqM) Est GFR (CKD-EPI)NonAf (>60 ml/min/1.73 sqM) Glucose (74-99) mg/dL Lactic Ac Sepsis Rflx Y Plasma Lactic Acid Lee 3.9 H* (0.7-2.0) mmol/L Calcium (8.4-10.2) mg/dL Total Bilirubin (0.2-1.3) mg/dL AST (14-36) U/L ALT (4-34) U/L Alkaline Phosphatase (38-126) U/L Troponin I <0.012 (0.000-0.034) ng/mL Total Protein (6.3-8.2) g/dL Albumin (3.5-5.0) g/dL Amylase (30-110) U/L Lipase (23-300) U/L Urine Color Urine Appearance (Clear) Urine pH (5.0-8.0) Ur Specific [place] (1.001-1.035) Urine Protein (Negative) Urine Glucose (UA) (Negative) Urine Ketones (Negative) Urine Blood (Negative) Urine Nitrite (Negative) Urine Bilirubin (Negative) Urine Urobilinogen (<2.0) mg/dL Ur Leukocyte Esterase (Negative) Urine RBC (0-5) /hpf Urine WBC (0-5) /hpf Ur Squamous Epith Cells (0-4) /hpf Urine Bacteria (None) /hpf Hyaline Casts (0-2) /lpf WBC Casts (0) /lpf Urine Mucus (None) /hpf Disposition Clinical Impression: JOSE ALBERTO (acute kidney injury), Lactic acidosis, Hydronephrosis, Hydroureter, left, Kidney stones Disposition: ADMITTED IP TO THIS [facility] Decision Date: 06/23/22 Decision Time: 12:40
[2022-06-23 11:26] LABS: Albumin 3.7 g/dL (3.5-5.0); Calcium 9.3 mg/dL (8.4-10.2); Potassium 3.9 mmol/L (3.5-5.1); Total Bilirubin 0.7 mg/dL (0.2-1.3); Total Protein 6.8 g/dL (6.3-8.2)
[2022-06-23] MEDS ORDERED: SODIUM CHLORIDE 0.9% 1,000 ML IV ONE (11:28)
[2022-06-23] MEDS ORDERED: SODIUM CHLORIDE 0.9% 500 ML 250 ML IV ONE (11:29)
[2022-06-23 11:38] LABS: Basophils # (A) 0.1 k/uL (0-0.2); Basophils % (A) 1 %; Eosinophils % (A) 0 %; HCT 41.6 % (34.0-46.0); HGB 12.8 gm/dL (11.4-16.0); Hypochromasia Moderate; Lymphocytes # (A) 0.2 k/uL (1.0-4.8); Lymphocytes % (A) 1 %; MCH 27.9 pg (25.0-35.0); MCHC 30.7 g/dL (31.0-37.0); MCV 90.7 fL (80.0-100.0); Mean Platelet Volume 7.8; Monocytes # (A) 0.5 k/uL (0-1.0); Monocytes % (A) 3 %; Neutrophils # (A) 15.7 k/uL (1.3-7.7); Neutrophils % (A) 94 %; Platelet Count 262 k/uL (150-450); RBC 4.59 m/uL (3.80-5.40); RDW 15.1 % (11.5-15.5); WBC 16.6 k/uL (3.8-10.6)
[2022-06-23 12:13] LABS: Appearance,Urine Cloudy (Clear); Bacteria,Urine Many /hpf; Bilirubin,Urine 1+ (Negative); Blood,Urine Trace (Negative); Color,Urine Dark Yellow; Glucose,Urine (UA) Negative (Negative); Hyaline Casts,Urine 4 /lpf (0-2); Ketones,Urine Trace (Negative); Leukocyte Esterase,Urine Large (Negative); Mucus,Urine Few /hpf; Nitrite,Urine Negative (Negative); Protein,Urine 2+ (Negative); RBC,Urine 6 /hpf (0-5); Squamous Epithelial Cell,Urine 5 /hpf (0-4); WBC,Urine 64 /hpf (0-5); White Blood Cell Casts,Urine 2 /lpf (0)
--- NOTE | 2022-06-23 12:16 | CT ---
EXAMINATION TYPE: CT abdomen pelvis w con DATE OF EXAM: 06/23/2022 HISTORY: LLQ pain CT DLP: 983.5mGycm Automated Exposure Control for Dose Reduction was Utilized. CONTRAST: CT scan of the abdomen and pelvis is performed without oral but with IV Contrast, patient injected wi th 100 mL of Isovue 300. COMPARISON: CT abdomen and pelvis February 27, 2020 FINDINGS: LUNG BASES: No significant abnormality is appreciated. LIVER/GB: There are simple appearing thin-walled cysts scattered throughout the liver which are incre ased in size from 2010 CT. PANCREAS: No significant abnormality is seen. SPLEEN: No significant abnormality is seen. ADRENALS: No significant abnormality is seen. KIDNEYS: Tiny punctate calculi are seen scattered throughout both kidneys with approximate 8 on the r ight and approximate 6 on the left. There is symmetric corticomedullary uptake with delayed or absent excretion on the left and satisfactory excretion on the right. No right-sided hydronephrosis. There is asymmetric left renal slight enlargement with moderate left sided perinephric fat stranding and re troperitoneal fluid secondary to obstructing 4 to 5 mm calculus right before UVJ axial image 87. Mild to Moderate left-sided hydronephrosis and hydroureter. BOWEL: Some diverticula in the left colon. No suspicious small or large bowel dilatation. Fluid-fille d right colon raises concern for diarrhea and/or mild uncomplicated colitis. Mild wall thickening als o noted near the hepatic flexure could reflect colitis versus product of poor distention. No free air . No well-formed fluid collection or abscess seen. UTERUS/ADNEXA: Uterus surgically absent or markedly atrophic in appearance.. LYMPH NODES: No greater than 1cm abdominal or pelvic lymph nodes are appreciated. OSSEOUS STRUCTURES: Moderate to severe disc space narrowing lumbosacral junction. The spine is straig htened on sagittal images. Facet arthropathy lower lumbar levels. OTHER: Moderate peripheral mixed plaque in the aorta extends into branch vessels. IMPRESSION: Tiny nonobstructing bilateral renal calculi are now present. There is [id number] le ft-sided hydronephrosis and at least delayed excretion due to obstructing 4 to 5 mm calculus in the d istal left ureter right before UVJ.
[2022-06-23] MEDS ORDERED: cefTRIAXone IN SWFI 1,000 MG/10 ML SYRINGE IVP STA (12:31)
[2022-06-23] MEDS ORDERED: NALOXONE 0.4 MG/ML 1 ML VIAL IV PRN (12:42)
[2022-06-23] MEDS ORDERED: HYDROmorphone 0.5 MG/0.5 ML SYRINGE IVP PRN (12:42)
[2022-06-23] MEDS ORDERED: ONDANSETRON 4 MG/2 ML VIAL IVP STA (12:56)
[2022-06-23] MEDS ORDERED: diphenhydrAMINE 50 MG/ML 1 ML VIAL IVP STA (13:04)
[2022-06-23] MEDS ORDERED: FAMOTIDINE 20 MG/2 ML VIAL IV STA (13:05)
[2022-06-23] MEDS ORDERED: methylPREDNISolone SOD SUCCI 125 MG/2 ML VIAL IV STA (13:12)
[2022-06-23] MEDS ORDERED: methocarbamoL 750 MG TAB PO PRN (13:14)
[2022-06-23] MEDS: ACETAMINOPHEN TAB 325 MG TAB PO PRN (15:23)
[2022-06-23] MEDS ORDERED: LACTATED RINGERS 1,000 ML IV ONE (16:30)
--- NOTE | 2022-06-23 16:52 | P.GSCN ---
History of Present Illness Consult date: 06/23/22 Reason for Consult: left Ureteral stone History of present illness: This is a 56-year-old female that presented to the hospital with left flank pain associated with fevers and chills. She was also complaining bladder pressure with dysuria. She underwent a CT abdomen and pelvis which showed evidence of a 5 mm left-sided distal ureteral stone with hydronephrosis. Patient was febrile at 101.7 and tachycardic in the ER. She indicated also she's been having nausea and vomiting in association with a flank pain. Denies any previous history of stones. There is a family history of kidney stones in the past. Of note she had a UTI in March that was treated with oral antibiotics, but indicated her symptoms have been persistent since that time. Review of Systems - Constitutional Reports chills, Reports fever - EENT Ears, nose, mouth and throat: Denies dysphagia - Cardiovascular Denies chest pain, Denies shortness of breath - Respiratory Denies cough, Denies 7 - Gastrointestinal Reports abdominal pain, Reports nausea, Reports vomiting - Genitourinary Genitourinary: Reports flank pain, Denies dysuria, Denies hematuria - Integumentary Denies rash, Denies unusual bruising - Neurological Denies headaches, Denies syncope Past Medical History Past Medical History: Hyperlipidemia, Hypertension Additional Past Medical History / Comment(s): chronic back pain, thyroid nodules History of Any Multi-Drug Resistant Organisms: None Reported Past Surgical History: Adenoidectomy, Section, Hysterectomy, Tonsillectomy Additional Past Surgical History / Comment(s): breast reduction, tummy tuck, hemorrhoid removal times 2 in June Past Anesthesia/Blood Transfusion Reactions: No Reported Reaction Past Psychological History: No Psychological Hx Reported Smoking Status: Never smoker Past Alcohol Use History: Occasional Past Drug Use History: Marijuana - Past Family History Mother Family Medical History: Cancer Additional Family Medical History / Comment(s): lung Father Family Medical History: COPD Additional Family Medical History / Comment(s): mesothelioma Medications and Allergies Home Medications Medication Instructions Recorded Confirmed Type amLODIPine [Norvasc] 5 mg PO DAILY 08/19/20 06/23/22 History FLUoxetine HCL [PROzac] 20 mg PO DAILY 03/25/21 06/23/22 History Clobex Scalp Solution 1 applic TOPICAL HS PRN 06/23/22 06/23/22 History DULoxetine HCL [Cymbalta] 60 mg PO DAILY 06/23/22 06/23/22 History Ergocalciferol [Vitamin D2 (1250 1,250 mcg PO MALIN 06/23/22 06/23/22 History Mcg = 41626 Iu)] HYDROcodone/APAP 7.5-325MG [[place] 1 tab PO Q6H PRN 06/23/22 06/23/22 History 7.5-325] Naproxen Sodium [Aleve] 440 mg PO DAILY@1400 06/23/22 06/23/22 History Pitavastatin Calcium [Livalo] 4 mg PO DAILY 06/23/22 06/23/22 History estradioL [Estrace] 0.25 mg PO DAILY 06/23/22 06/23/22 History methocarbamoL [Robaxin-750] 750 mg PO TID PRN 06/23/22 06/23/22 History Allergies Allergy/AdvReac Type Severity Reaction Status Date / Time cigarette smoke Allergy Swelling Verified 06/23/22 13:15 eyes Iodinated Contrast Media Allergy Dyspnea Verified 06/23/22 16:27 lisinopril Allergy Swelling Verified 06/23/22 13:15 lips/angioedema Mushroom Allergy Itching Verified 06/23/22 13:15 shellfish derived [Shrimp] Allergy Itching Verified 06/23/22 13:15 Sulfa (Sulfonamide Allergy Unknown Verified 06/23/22 13:15 Antibiotics) tomato Allergy Itching Verified 06/23/22 13:15 Surgical - Exam Vital Signs Temp Pulse Resp BP Pulse Ox 98.2 F 104 H 15 91/52 99 06/23/22 10:02 06/23/22 10:02 06/23/22 10:02 06/23/22 10:02 06/23/22 10:02 - General moderate distress, moderate pain - Eyes normal ocular movement, no pale - ENT normal nares, normal mucosa - Respiratory normal expansion, normal respiratory effort - Abdomen Abdomen: soft, tender (Left flank) - Psychiatric oriented to time, oriented to person, oriented to place Results - Labs 06/23/22 10:52 06/23/22 10:52 Abnormal Lab Results - Last 24 Hours (Table) 06/23/22 06/23/22 06/23/22 Range/Units 10:52 10:52 10:52 WBC 16.6 H (3.8-10.6) k/uL MCHC 30.7 L (31.0-37.0) g/dL Neutrophils # 15.7 H (1.3-7.7) k/uL Lymphocytes # 0.2 L (1.0-4.8) k/uL Carbon Dioxide 20 L (22-30) mmol/L BUN 19 H (7-17) mg/dL Creatinine 1.63 H (0.52-1.04) mg/dL Glucose 115 H (74-99) mg/dL Plasma Lactic Acid Lee (0.7-2.0) mmol/L AST 59 H (14-36) U/L Urine Appearance Cloudy H (Clear) Urine Protein 2+ H (Negative) Urine Ketones Trace H (Negative) Urine Blood Trace H (Negative) Urine Bilirubin 1+ H (Negative) Ur Leukocyte Esterase Large H (Negative) Urine RBC 6 H (0-5) /hpf Urine WBC 64 H (0-5) /hpf Ur Squamous Epith Cells 5 H (0-4) /hpf Urine Bacteria Many H (None) /hpf Hyaline Casts 4 H (0-2) /lpf Urine Mucus Few H (None) /hpf 06/23/22 06/23/22 Range/Units 10:52 15:42 WBC (3.8-10.6) k/uL MCHC (31.0-37.0) g/dL Neutrophils # (1.3-7.7) k/uL Lymphocytes # (1.0-4.8) k/uL Carbon Dioxide (22-30) mmol/L BUN (7-17) mg/dL Creatinine (0.52-1.04) mg/dL Glucose (74-99) mg/dL Plasma Lactic Acid Lee 3.9 H* 5.7 H* (0.7-2.0) mmol/L AST (14-36) U/L Urine Appearance (Clear) Urine Protein (Negative) Urine Ketones (Negative) Urine Blood (Negative) Urine Bilirubin (Negative) Ur Leukocyte Esterase (Negative) Urine RBC (0-5) /hpf Urine WBC (0-5) /hpf Ur Squamous Epith Cells (0-4) /hpf Urine Bacteria (None) /hpf Hyaline Casts (0-2) /lpf Urine Mucus (None) /hpf Diabetes panel 06/23/22 Range/Units 10:52 Sodium 141 (137-145) mmol/L Potassium 3.9 (3.5-5.1) mmol/L Chloride 105 (98-107) mmol/L Carbon Dioxide 20 L (22-30) mmol/L BUN 19 H (7-17) mg/dL Creatinine 1.63 H (0.52-1.04) mg/dL Glucose 115 H (74-99) mg/dL Calcium 9.3 (8.4-10.2) mg/dL AST 59 H (14-36) U/L ALT 31 (4-34) U/L Alkaline Phosphatase 114 (38-126) U/L Total Protein 6.8 (6.3-8.2) g/dL Albumin 3.7 (3.5-5.0) g/dL Calcium panel 06/23/22 Range/Units 10:52 Calcium 9.3 (8.4-10.2) mg/dL Albumin 3.7 (3.5-5.0) g/dL Pituitary panel 06/23/22 Range/Units 10:52 Sodium 141 (137-145) mmol/L Potassium 3.9 (3.5-5.1) mmol/L Chloride 105 (98-107) mmol/L Carbon Dioxide 20 L (22-30) mmol/L BUN 19 H (7-17) mg/dL Creatinine 1.63 H (0.52-1.04) mg/dL Glucose 115 H (74-99) mg/dL Calcium 9.3 (8.4-10.2) mg/dL Adrenal panel 06/23/22 Range/Units 10:52 Sodium 141 (137-145) mmol/L Potassium 3.9 (3.5-5.1) mmol/L Chloride 105 (98-107) mmol/L Carbon Dioxide 20 L (22-30) mmol/L BUN 19 H (7-17) mg/dL Creatinine 1.63 H (0.52-1.04) mg/dL Glucose 115 H (74-99) mg/dL Calcium 9.3 (8.4-10.2) mg/dL Total Bilirubin 0.7 (0.2-1.3) mg/dL AST 59 H (14-36) U/L ALT 31 (4-34) U/L Alkaline Phosphatase 114 (38-126) U/L Total Protein 6.8 (6.3-8.2) g/dL Albumin 3.7 (3.5-5.0) g/dL Assessment and Plan Assessment: This is a 56-year-old female admitted to the hospital with a 5 mm left distal stone patient is septic secondary to her stone. Discussed with her given her sepsis I recommend proceeding to the OR emergently for stent insertion. Discussed with her she will be admitted postoperatively and will require continued IV antibiotics until cultures are finalized. Discussed with her the rationale of doing a stent. Discussed this is not a definitive way to manage the stone, and she will require left-sided ureteroscopy and holmium laser Vs ESWL in 3-4 weeks. -NPO -OR for left sided stent insertion
[2022-06-23] MEDS ORDERED: LIDOCAINE 2% INJ 20 MG/ML (2 ML VIAL) ONE (17:11)
[2022-06-23] MEDS ORDERED: PROPOFOL 10 MG/ML 20 ML VIAL IV ONE (17:11)
[2022-06-23] MEDS ORDERED: fentaNYL (PF) 50 MCG/ML 2 ML AMP ONE (17:11)
[2022-06-23] MEDS ORDERED: PHENYLEPHRINE-0.9% NACL SYG 1,000 MCG/10 ML SYRINGE ONE (17:11)
[2022-06-23] MEDS ORDERED: MIDAZOLAM 2 MG/2 ML VIAL ONE (17:11)
[2022-06-23] MEDS ORDERED: SODIUM CHLORIDE 0.9% 100 ML with GENTAMICIN 80 MG IV ONE ×2 (17:25)
--- NOTE | 2022-06-23 17:40 | P.OP ---
Date of Procedure: 06/23/22 Preoperative Diagnosis: Left ureteral stone Postoperative Diagnosis: Same Procedure(s) Performed: Cystoscopy, left stent insertion Implants: 6-Turkish by 24 cm stent in the left ureter Anesthesia: VENICE Surgeon: Esteban Saez Estimated Blood Loss (ml): 1 Pathology: other Condition: stable Disposition: PACU Indications for Procedure: 56-year-old female with history of a 5 mm left-sided distal ureteral stone. Patient is septic secondary to her stone. Option of stent insertion was discussed with her. Discussed the risk, benefit and the rational of doing the surgery. Discussed with her this is not a definitive way to address the stone, and she will need definitive stone management as an outpatient once her sepsis resolves. Description of Procedure: Patient brought to the operating room, general anesthesia was induced. She was prepped and draped in sterile fashion and placed in dorsal lithotomy position. Cystoscopy fitted with a 21-Turkish sheath was inserted per urethra, cystoscopy was performed which showed no abnormality within the bladder. Attention was then carried to the left ureteral orifice which was intubated with a sensor wire. Next a ureteral stent was passed over the wire, the proximal curl was vi sualized on fluoroscopy and distal curl was visualized using the cystoscope. Purulent urine drained from the collecting system upon stent insertion. The bladder was emptied at the end of the case. Patient tolerated the procedure well was taken to recovery in stable condition
--- NOTE | 2022-06-23 17:57 | FL ---
Intraoperative/procedural fluoroscopic services were provided. Total fluoroscopy time is 3 seconds wi th a total of 1 submitted images to PACS. Please see the operative/procedural note for further detail s.
[2022-06-23 18:46] LABS: Glucose,Whole Blood 105 mg/dL (70-110)
[2022-06-23] MEDS: SODIUM CHLORIDE 0.9% 1,000 ML IV SCH (20:47)
[2022-06-23] MEDS: KETOROLAC 15 MG/ML 1 ML VIAL IVP PRN (21:45)
[2022-06-23] MEDS: PANTOPRAZOLE 40 MG/10 ML VIAL IVP SCH (21:45)
--- NOTE | 2022-06-23 23:30 | HP ---
HISTORY AND PHYSICAL CHIEF COMPLAINT: Abdominal pain and vomiting. HISTORY OF PRESENT ILLNESS: This 56-year-old woman with a past medical history of hypertension, hypercholesterolemia, being followed by Dr. Herrmann in the outpatient setting complaining of left-sided abdominal pain, bloating, and left groin pain. The patient also had some vomiting and because the pain is getting worse, the patient came to [facility] and was admitted for further evaluation and treatment. Left ureteral calculus and left hydronephrosis were noted. There was no history of any rigors, or chills. The patient has no history of fever. PAST MEDICAL HISTORY: Reviewed. Hypertension, hyperlipidemia. HOME MEDICATIONS: Reviewed, include Robaxin. Dose and rest of medications noted. ALLERGIES: Include noted. REVIEW OF SYSTEMS: A 14-point review of systems negative except as mentioned earlier. FAMILY HISTORY: History of lung cancer. SOCIAL HISTORY: History of THC. No history of smoking. PHYSICAL EXAMINATION: VITAL SIGNS: Pulse is 78, blood pressure n, respirations 16. HEENT: Conjunctivae normal. CARDIOVASCULAR: S1 and S2 n RESPIRATION: Breath sounds diminished at the bases. No rhonchi. No crackles. ABDOMEN: Soft. Minimal distention. Mild tenderness in the left side. No guarding or rigidity. Bowel sounds present. LEGS: No edema. NERVOUS SYSTEM: No focal deficit. LABS: WBC 16.2. Other labs are noted. ASSESSMENT: 1. Acute ureterolithiasis on the left side with severe pain as well as left hydronephrosis. 2. Acute urinary tract infection. 3. Hypertension. 4. Hyperlipidemia. RECOMMENDATIONS AND DISCUSSION: This 56-year-old woman who presented with multiple complex medical issues, we will monitor the patient closely. Continue with empiric antibiotics, IV fluids. Urology consultation. Resume the home medications. Symptomatic treatment. Guarded prognosis because of multiple complex medical conditions. MMODL / IJN: [id number] / [id number]
[2022-06-24 07:06] LABS: HCT 33.6 % (34.0-46.0); HGB 10.4 gm/dL (11.4-16.0); Hypochromasia Moderate; MCH 27.9 pg (25.0-35.0); MCHC 30.9 g/dL (31.0-37.0); MCV 90.1 fL (80.0-100.0); Mean Platelet Volume 8.3; Platelet Count 189 k/uL (150-450); RBC 3.73 m/uL (3.80-5.40); RDW 15.4 % (11.5-15.5); WBC 23.1 k/uL (3.8-10.6)
[2022-06-24] MEDS: SODIUM CHLORIDE 0.9% 1,000 ML IV SCH ×2 (07:10→13:29)
[2022-06-24 07:54] LABS: Calcium 8.2 mg/dL (8.4-10.2); Potassium 4.5 mmol/L (3.5-5.1)
[2022-06-24 08:07] LABS: Band Neutrophils % 6 %; Lymphocytes # (M) 2.08 k/uL (1.0-4.8); Monocytes # (M) 1.85 k/uL (0-1.0); Neutrophils % (M) 77 %; Nucleated Red Blood Cells 0 /100 WBC (0-0); Total Cells Counted 100
[2022-06-24] MEDS: ATORVASTATIN 20 MG TAB PO SCH (09:00)
[2022-06-24] MEDS: FLUoxetine HCL 20 MG CAP PO SCH (09:00)
[2022-06-24] MEDS: amLODIPine 5 MG TAB PO SCH (09:00)
[2022-06-24] MEDS: DULoxetine HCL 60 MG CAPSULE.DR PO SCH (09:00)
[2022-06-24] MEDS: PANTOPRAZOLE 40 MG/10 ML VIAL IVP SCH (09:01)
--- NOTE | 2022-06-24 13:14 | P.PN ---
Subjective Progress Note Date: 06/24/22 patient underwent left stent insertion yesterday, blood culture growing E. coli. patient is hemodynamically stable Objective - Vital Signs Vital signs: Vital Signs Temp 98.3 F 06/24/22 08:00 Pulse 73 06/24/22 08:00 Resp 22 06/24/22 08:00 BP 150/91 06/24/22 08:00 Pulse Ox 98 06/24/22 08:00 FiO2 Intake & Output 06/23/22 06/24/22 06/24/22 18:59 06:59 18:59 Intake Total 902 250 Output Total 2 1 Balance 900 249 Weight 72.575 kg Intake: IV 902 Intake, IV Titration 250 Amount Sodium Chloride 0.9% 1, 250 000 ml @ 125 mls/hr IV . Q8H [facility] Rx#:[id number] Output: Stool 1 Estimated Blood Loss 2 Other: # Voids 1 - Constitutional General appearance: Present: no acute distress - Gastrointestinal General gastrointestinal: Present: soft. Absent: distended, tenderness - Psychiatric Psychiatric: Present: A&O x's 3 - Labs CBC & Chem 7: 06/24/22 06:46 06/24/22 06:46 Labs: Abnormal Lab Results - Last 24 Hours (Table) 06/23/22 06/23/22 06/24/22 Range/Units 15:42 19:53 06:46 WBC 23.1 H (3.8-10.6) k/uL RBC 3.73 L (3.80-5.40) m/uL Hgb 10.4 L (11.4-16.0) gm/dL Hct 33.6 L (34.0-46.0) % MCHC 30.9 L (31.0-37.0) g/dL Neutrophils # (Manual) 19.10 H (1.3-7.7) k/uL Monocytes # (Manual) 1.85 H (0-1.0) k/uL Chloride (98-107) mmol/L Carbon Dioxide (22-30) mmol/L BUN (7-17) mg/dL Glucose (74-99) mg/dL Plasma Lactic Acid Lee 5.7 H* 2.2 H* (0.7-2.0) mmol/L Calcium (8.4-10.2) mg/dL 06/24/22 Range/Units 06:46 WBC (3.8-10.6) k/uL RBC (3.80-5.40) m/uL Hgb (11.4-16.0) gm/dL Hct (34.0-46.0) % MCHC (31.0-37.0) g/dL Neutrophils # (Manual) (1.3-7.7) k/uL Monocytes # (Manual) (0-1.0) k/uL Chloride 109 H (98-107) mmol/L Carbon Dioxide 21 L (22-30) mmol/L BUN 19 H (7-17) mg/dL Glucose 136 H (74-99) mg/dL Plasma Lactic Acid Lee (0.7-2.0) mmol/L Calcium 8.2 L (8.4-10.2) mg/dL Microbiology - Last 24 Hours (Table) 06/23/22 11:37 Blood Culture Gram Stain - Preliminary Blood Blood Culture - Preliminary Escherichia coli 06/23/22 11:20 Blood Culture Gram Stain - Preliminary Blood 06/23/22 11:37 Blood Culture - Final Blood 06/23/22 11:20 Blood Culture - Final Blood 06/23/22 10:52 Urine Culture - Preliminary Urine,Voided Assessment and Plan Assessment: status post left stent insertion for a septic stone. Doing well hemodynamically stable morning -Okay for for transfer to the floor from urology standpoint -Recommend keeping in the hospital until culture was finalized
--- NOTE | 2022-06-24 13:46 | XR ---
EXAMINATION TYPE: XR chest 1V portable DATE OF EXAM: 06/24/2022 COMPARISON: 08/19/2020 HISTORY: Shortness of breath TECHNIQUE: Single frontal view of the chest is obtained. FINDINGS: There is no focal air space opacity, pleural effusion, or pneumothorax seen. The cardiac silhouette size is within normal limits. The osseous structures are intact. Heart size normal. Limi lucina inspiration. No overt failure. IMPRESSION: No acute process.
[2022-06-24] MEDS: PANTOPRAZOLE 40 MG TABLET PO SCH (17:17)
[2022-06-24] MEDS: KETOROLAC 15 MG/ML 1 ML VIAL IVP PRN (21:03)
--- NOTE | 2022-06-24 21:57 | P.CONS ---
History of Present Illness - Reason for Consult Consult date: 06/24/22 Sepsis Requesting physician: Xiang Larkin - Chief Complaint Left-sided flank pain x few days - History of Present Illness Patient is a 56-year-old -Bangl[place] female with a past medical history taken for hypertension presenting to the ER yesterday morning for evaluation of left sided abdominal pain that has been progressively getting worse for 3 days pain has been mostly in the flank area with radiation to the groin patient was describing the pain to be more of a sharp in nature intensity almost 7-8 out of 10 patient has been nauseated with episode of vomiting however denies any diarrhea or constipation patient on presentation to the hospital was afebrile subsequently spiked a fever of 101.3 F patient did have white count of 16 point 6 repeat was 23,000 with a left shift kidney function has been normal he did have elevated lactic acid AST mildly elevated respiratory enzymes are normal amylase lipase was normal patient did have positive UA patient did have a CT of abdominal pelvis daily nonobstructive bilateral renal calculi with mild to moderate left-sided hydronephrosis patient was taken to the OR and the patient is status post cystoscopy and left ureteral stent placement patient did have blood cultures drawn which came back positive with gram-negative bacilli that has prompted this infectious disease consultation Review of Systems Positive point has been mentioned in the HPI rest of the systems are negative Past Medical History Past Medical History: Hyperlipidemia, Hypertension Additional Past Medical History / Comment(s): chronic back pain, thyroid nodules History of Any Multi-Drug Resistant Organisms: None Reported Past Surgical History: Adenoidectomy, Section, Hysterectomy, Tonsil lectomy Additional Past Surgical History / Comment(s): breast reduction, tummy tuck, hemorrhoid removal in June 2020 Past Anesthesia/Blood Transfusion Reactions: No Reported Reaction Past Psychological History: Depression Additional Psychological History / Comment(s): Patient states she has depression but it is "under control". Smoking Status: Never smoker Past Alcohol Use History: Occasional Past Drug Use History: Marijuana - Past Family History Mother Family Medical History: Cancer Additional Family Medical History / Comment(s): lung Father Family Medical History: COPD Additional Family Medical History / Comment(s): mesothelioma Medications and Allergies Home Medications Medication Instructions Recorded Confirmed Type amLODIPine [Norvasc] 5 mg PO DAILY 08/19/20 06/23/22 History FLUoxetine HCL [PROzac] 20 mg PO DAILY 03/25/21 06/23/22 History Clobex Scalp Solution 1 applic TOPICAL HS PRN 06/23/22 06/23/22 History DULoxetine HCL [Cymbalta] 60 mg PO DAILY 06/23/22 06/23/22 History Ergocalciferol [Vitamin D2 (1250 1,250 mcg PO MALIN 06/23/22 06/23/22 History Mcg = 93576 Iu)] HYDROcodone/APAP 7.5-325MG [[place] 1 tab PO Q6H PRN 06/23/22 06/23/22 History 7.5-325] Naproxen Sodium [Aleve] 440 mg PO DAILY@1400 06/23/22 06/23/22 History Pitavastatin Calcium [Livalo] 4 mg PO DAILY 06/23/22 06/23/22 History estradioL [Estrace] 0.25 mg PO DAILY 06/23/22 06/23/22 History methocarbamoL [Robaxin-750] 750 mg PO TID PRN 06/23/22 06/23/22 History cefUROXime axetiL [Ceftin] 500 mg PO BID 10 Days #20 tab 06/26/22 Rx Allergies Allergy/AdvReac Type Severity Reaction Status Date / Time cigarette smoke Allergy Swelling Verified 06/23/22 13:15 eyes Iodinated Contrast Media Allergy Dyspnea Verified 06/23/22 22:14 lisinopril Allergy Swelling Verified 06/23/22 13:15 lips/angioedema Mushroom Allergy Itching Verified 06/23/22 13:15 shellfish derived [Shrimp] Allergy Itching Verified 06/23/22 13:15 Sulfa (Sulfonamide Allergy Unknown Verified 06/23/22 13:15 Antibiotics) tomato Allergy Itching Verified 06/23/22 13:15 Physical Exam Vitals: Vital Signs Temp Pulse Pulse Resp BP BP Pulse Ox 06/24/22 08:00 98.3 F 73 22 150/91 98 06/24/22 02:00 98.1 F 71 12 144/80 100 06/23/22 20:00 97.9 F 60 16 124/82 98 06/23/22 18:58 98.8 F 95 14 109/67 92 L 06/23/22 18:32 86 18 97/56 96 06/23/22 18:10 91 16 95/54 99 06/23/22 17:55 92 18 101/55 97 06/23/22 17:40 97.9 F 100 16 102/56 100 06/23/22 16:28 97.6 F 94 16 94/54 98 06/23/22 16:07 99.6 F 98 17 98/53 99 06/23/22 15:18 101.3 F H 106 H 17 125/71 99 06/23/22 13:59 100.5 F H 126 H 18 148/78 98 06/23/22 13:26 134 H 24 171/88 98 06/23/22 12:46 78 16 109/69 97 Intake and Output 06/23/22 06/24/22 06/24/22 22:59 06:59 14:59 Intake Total 1027 125 Output Total 3 0 Balance 1024 125 Intake: IV 902 Intake, IV Titration 125 125 Amount Sodium Chloride 0.9% 1, 125 125 000 ml @ 125 mls/hr IV . Q8H [facility] Rx#:[id number] Output: Stool 1 0 Estimated Blood Loss 2 Other: # Voids 3 1 Weight 72.575 kg GENERAL DESCRIPTION: Middle-aged female lying in bed, no distress. No tachypnea or accessory muscle of respiration use. HEENT: Shows Pallor , no scleral icterus. Oral mucous membrane is dry. No p haryngeal erythema or thrush NECK: Trachea central, no thyromegaly. LUNGS: Unlabored breathing. Clear to auscultation anteriorly. No wheeze or crackle. HEART: S1, S2, regular rate and rhythm. No loud murmur ABDOMEN: Soft, no tenderness , guarding or rigidity, no organomegaly EXTREMITIES: No edema of feet. SKIN: No rash, no masses palpable. NEUROLOGICAL: The patient is awake, alert, oriented x3, mood and affect normal. Results CBC & Chem 7: 06/26/22 07:05 06/26/22 07:05 Labs: Abnormal Lab Results - Last 24 Hours (Table) 06/23/22 06/23/22 06/23/22 Range/Units 10:52 15:42 19:53 WBC (3.8-10.6) k/uL RBC (3.80-5.40) m/uL Hgb (11.4-16.0) gm/dL Hct (34.0-46.0) % MCHC (31.0-37.0) g/dL Neutrophils # (Manual) (1.3-7.7) k/uL Monocytes # (Manual) (0-1.0) k/uL Chloride (98-107) mmol/L Carbon Dioxide (22-30) mmol/L BUN (7-17) mg/dL Glucose (74-99) mg/dL Plasma Lactic Acid Lee 5.7 H* 2.2 H* (0.7-2.0) mmol/L Calcium (8.4-10.2) mg/dL Urine Appearance Cloudy H (Clear) Urine Protein 2+ H (Negative) Urine Ketones Trace H (Negative) Urine Blood Trace H (Negative) Urine Bilirubin 1+ H (Negative) Ur Leukocyte Esterase Large H (Negative) Urine RBC 6 H (0-5) /hpf Urine WBC 64 H (0-5) /hpf Ur Squamous Epith Cells 5 H (0-4) /hpf Urine Bacteria Many H (None) /hpf Hyaline Casts 4 H (0-2) /lpf Urine Mucus Few H (None) /hpf 06/24/22 06/24/22 Range/Units 06:46 06:46 WBC 23.1 H (3.8-10.6) k/uL RBC 3.73 L (3.80-5.40) m/uL Hgb 10.4 L (11.4-16.0) gm/dL Hct 33.6 L (34.0-46.0) % MCHC 30.9 L (31.0-37.0) g/dL Neutrophils # (Manual) 19.10 H (1.3-7.7) k/uL Monocytes # (Manual) 1.85 H (0-1.0) k/uL Chloride 109 H (98-107) mmol/L Carbon Dioxide 21 L (22-30) mmol/L BUN 19 H (7-17) mg/dL Glucose 136 H (74-99) mg/dL Plasma Lactic Acid Lee (0.7-2.0) mmol/L Calcium 8.2 L (8.4-10.2) mg/dL Urine Appearance (Clear) Urine Protein (Negative) Urine Ketones (Negative) Urine Blood (Negative) Urine Bilirubin (Negative) Ur Leukocyte Esterase (Negative) Urine RBC (0-5) /hpf Urine WBC (0-5) /hpf Ur Squamous Epith Cells (0-4) /hpf Urine Bacteria (None) /hpf Hyaline Casts (0-2) /lpf Urine Mucus (None) /hpf Microbiology - Last 24 Hours (Table) 06/23/22 11:37 Blood Culture Gram Stain - Preliminary Blood Blood Culture - Preliminary Escherichia coli 06/23/22 11:20 Blood Culture Gram Stain - Preliminary Blood 06/23/22 11:37 Blood Culture - Final Blood 06/23/22 11:20 Blood Culture - Final Blood 06/23/22 10:52 Urine Culture - Preliminary Urine,Voided Assessment and Plan (1) Bacteremia Current Visit: Yes Status: Acute Code(s): R78.81 - BACTEREMIA SNOMED Code(s): 3179883 Plan: 1patient presented to hospital with sepsis in this patient who did have a fever elevated white count elevated lactic acid source is likely left-sided complicated UTI in this patient did have evidence of moderate hydronephrosis in this patient status post cystoscopy with left ureteral stent placement and now with evidence of gram-negative bacteremia. 2we will increase the dose of Rocephin to 2 g daily as initial culture showing E. coli more likely sensitive pathogen 3IV fluid We will follow on clinical condition and cultures to further adjust medication if needed Thank you for this consultation will follow this patient along with you Time with Patient: Greater than 30
[2022-06-25] MEDS: HYDROcodone/APAP 7.5-325MG 1 EACH TAB PO PRN (02:12)
--- NOTE | 2022-06-25 04:01 | PN ---
PROGRESS NOTE HISTORY OF PRESENT ILLNESS: This 56-year-old woman was admitted with acute urolithiasis, hydronephrosis, and severe UTI, is being closely monitored at this time. The patient underwent cystoscopy and left stent insertion by Urology. The patient has empiric antibiotics. The white count is still elevated up to 23.1. Blood culture showing E coli. PAST MEDICAL HISTORY: Reviewed. REVIEW OF SYSTEMS: A 14-point review of systems is negative except as mentioned earlier. CURRENT MEDICATIONS: Reviewed include [place], rest of medication and doses are reviewed. PHYSICAL EXAMINATION: VITAL SIGNS: Pulse is 73, blood pressure 150/91, respiration 22. HEENT: Conjunctivae normal. NECK: No JVD. CARDIOVASCULAR: No murmurs. RESPIRATION: Breath sounds diminished at the bases. No rhonchi. No crackles. ABDOMEN: Soft. Mild diffuse tenderness in the left side. No guarding. No rigidity. NERVOUS SYSTEM: No focal deficits. LABS: Reviewed. WBC 23.9. ASSESSMENT: 1. Acute urinary tract infection with ureterolithiasis. 2. Escherichia coli from the blood cultures. 3. Status post stent placement. 4. Left hydronephrosis. 5. Hypertension. 6. Hyperlipidemia. RECOMMENDATIONS AND DISCUSSION: I recommend to continue current management. Continue the broad-spectrum IV antibiotics. Closely follow. Infectious disease evaluation. Continue the IV fluids. Repeat labs in the morning. Guarded prognosis. Further recommendations to follow. See orders for details. MMODL / IJN: [id number] /
[2022-06-25 06:54] LABS: Basophils # (A) 0.1 k/uL (0-0.2); Basophils % (A) 0 %; Eosinophils % (A) 0 %; HCT 31.9 % (34.0-46.0); Hypochromasia Slight; Lymphocytes # (A) 2.7 k/uL (1.0-4.8); Lymphocytes % (A) 11 %; MCH 28.1 pg (25.0-35.0); MCHC 31.3 g/dL (31.0-37.0); MCV 89.6 fL (80.0-100.0); Mean Platelet Volume 8.7; Monocytes # (A) 0.7 k/uL (0-1.0); Monocytes % (A) 3 %; Neutrophils # (A) 21.6 k/uL (1.3-7.7); Neutrophils % (A) 85 %; Platelet Count 170 k/uL (150-450); RBC 3.56 m/uL (3.80-5.40); RDW 15.5 % (11.5-15.5); WBC 25.5 k/uL (3.8-10.6)
[2022-06-25 07:06] LABS: African American GFR (CKD) >90 (>60 ml/min/1.73 sqM); Anion Gap 9 mmol/L; Blood Urea Nitrogen 20 mg/dL (7-17); Calcium 8.3 mg/dL (8.4-10.2); Carbon Dioxide 21 mmol/L (22-30); Chloride 110 mmol/L (98-107); Glucose 108 mg/dL (74-99); Non-African American GFR(CKD) 84 (>60 ml/min/1.73 sqM); Potassium 3.7 mmol/L (3.5-5.1); Sodium 140 mmol/L (137-145)
[2022-06-25] MEDS: DULoxetine HCL 60 MG CAPSULE.DR PO SCH (09:04)
[2022-06-25] MEDS: amLODIPine 5 MG TAB PO SCH (09:05)
[2022-06-25] MEDS: PANTOPRAZOLE 40 MG TABLET PO SCH ×2 (09:05→16:40)
[2022-06-25] MEDS: FLUoxetine HCL 20 MG CAP PO SCH (09:05)
[2022-06-25] MEDS: ATORVASTATIN 20 MG TAB PO SCH (09:05)
[2022-06-25] MEDS ORDERED: OXYBUTYNIN XL 5 MG TAB.ER.24 PO SCH (16:15)
--- NOTE | 2022-06-25 16:22 | P.PN ---
Subjective Progress Note Date: 06/25/22 patient underwent left stent insertion yesterday, blood culture growing E. coli. patient is hemodynamically stable. Complaining of frequency and urgency this morning Objective - Vital Signs Vital signs: Vital Signs Temp 97.8 F 06/25/22 12:26 Pulse 70 06/25/22 12:26 Resp 18 06/25/22 14:00 BP 145/79 06/25/22 12:26 Pulse Ox 97 06/25/22 12:26 FiO2 Intake & Output 06/24/22 06/25/22 06/25/22 18:59 06:59 18:59 Intake Total 1700 1500 Balance 1700 1500 Intake: Intake, IV Titration 1100 800 Amount Sodium Chloride 0.9% 1, 1000 800 000 ml @ 50 mls/hr IV . Q20H [facility] Rx#:[id number] cefTRIAXone 1 gm In 100 Sodium Chloride 0.9% 50 ml @ 100 mls/hr IVPB Q24HR [facility] Rx#:[id number] Oral 600 700 Other: # Voids 2 3 - Constitutional General appearance: Present: no acute distress - Gastrointestinal General gastrointestinal: Present: soft. Absent: distended, tenderness - Labs CBC & Chem 7: 06/25/22 06:25 06/25/22 06:25 Labs: Abnormal Lab Results - Last 24 Hours (Table) 06/25/22 06/25/22 Range/Units 06:25 06:25 WBC 25.5 H (3.8-10.6) k/uL RBC 3.56 L (3.80-5.40) m/uL Hgb 10.0 L (11.4-16.0) gm/dL Hct 31.9 L (34.0-46.0) % Neutrophils # 21.6 H (1.3-7.7) k/uL Chloride 110 H (98-107) mmol/L Carbon Dioxide 21 L (22-30) mmol/L BUN 20 H (7-17) mg/dL Glucose 108 H (74-99) mg/dL Calcium 8.3 L (8.4-10.2) mg/dL Microbiology - Last 24 Hours (Table) 06/23/22 11:20 Blood Culture Gram Stain - Preliminary Blood Blood Culture - Preliminary Gram Neg Bacilli 06/23/22 10:52 Urine Culture - Preliminary Urine,Voided Gram Neg Bacilli Assessment and Plan Assessment: status post left stent insertion for a septic stone. Doing well hemodynamically stable morning -Okay for for transfer to the floor from urology standpoint -We will start Ditropan 5 mg XL for stent discomfort -Recommend keeping in the hospital until culture was finalized
[2022-06-25] MEDS: SODIUM CHLORIDE 0.9% 1,000 ML IV SCH (19:06)
[2022-06-26] MEDS: HYDROcodone/APAP 7.5-325MG 1 EACH TAB PO PRN (02:02)
[2022-06-26] MEDS: SODIUM CHLORIDE 0.9% 1,000 ML IV SCH (06:30)
[2022-06-26] MEDS: PANTOPRAZOLE 40 MG TABLET PO SCH ×2 (07:05→17:40)
[2022-06-26 07:26] LABS: Basophils # (A) 0.1 k/uL (0-0.2); Basophils % (A) 0 %; Eosinophils # (A) 0.2 k/uL (0-0.7); Eosinophils % (A) 1 %; HGB 10.1 gm/dL (11.4-16.0); Hypochromasia Slight; Lymphocytes # (A) 3.5 k/uL (1.0-4.8); Lymphocytes % (A) 16 %; MCH 27.3 pg (25.0-35.0); MCHC 30.7 g/dL (31.0-37.0); MCV 88.8 fL (80.0-100.0); Mean Platelet Volume 9.1; Monocytes # (A) 0.7 k/uL (0-1.0); Monocytes % (A) 3 %; Neutrophils # (A) 17.3 k/uL (1.3-7.7); Neutrophils % (A) 78 %; Platelet Count 163 k/uL (150-450); RBC 3.72 m/uL (3.80-5.40); RDW 15.6 % (11.5-15.5); WBC 22.3 k/uL (3.8-10.6)
[2022-06-26 07:43] LABS: ALT 22 U/L (4-34); AST 35 U/L (14-36); African American GFR (CKD) >90 (>60 ml/min/1.73 sqM); Albumin 2.9 g/dL (3.5-5.0); Alkaline Phosphatase 126 U/L (38-126); Anion Gap 9 mmol/L; Blood Urea Nitrogen 12 mg/dL (7-17); Calcium 8.7 mg/dL (8.4-10.2); Carbon Dioxide 24 mmol/L (22-30); Chloride 105 mmol/L (98-107); Glucose 89 mg/dL (74-99); Non-African American GFR(CKD) >90 (>60 ml/min/1.73 sqM); Potassium 3.5 mmol/L (3.5-5.1); Sodium 138 mmol/L (137-145); Total Bilirubin 0.3 mg/dL (0.2-1.3); Total Protein 5.6 g/dL (6.3-8.2)
--- NOTE | 2022-06-26 07:56 | P.PN ---
Subjective patient underwent left stent insertion 06/24 , blood culture growing E. coli. patient is hemodynamically stable. Minimal improvement of frequency and urgency with Ditropan. Objective - Vital Signs Vital signs: Vital Signs Temp 98 F 06/26/22 02:00 Pulse 78 06/26/22 02:00 Resp 18 06/26/22 02:00 BP 151/79 06/26/22 02:00 Pulse Ox 98 06/26/22 02:00 FiO2 Intake & Output 06/25/22 06/26/22 06/26/22 18:59 06:59 18:59 Intake Total 480 1150 Output Total 0 Balance 480 1150 Intake: IV 350 0.9 @ 25mls/hr 200 Sodium Chloride 0.9% 1, 150 000 ml @ 50 mls/hr IV . Q20H [facility] Rx#:[id number] Oral 480 800 Output: Stool 0 Other: # Voids 4 6 - Constitutional General appearance: Present: no acute distress - Gastrointestinal General gastrointestinal: Absent: distended, tenderness - Psychiatric Psychiatric: Present: A&O x's 3 - Labs CBC & Chem 7: 06/26/22 07:05 06/26/22 07:05 Labs: Abnormal Lab Results - Last 24 Hours (Table) 06/26/22 06/26/22 Range/Units 07:05 07:05 WBC 22.3 H (3.8-10.6) k/uL RBC 3.72 L (3.80-5.40) m/uL Hgb 10.1 L (11.4-16.0) gm/dL Hct 33.0 L (34.0-46.0) % MCHC 30.7 L (31.0-37.0) g/dL RDW 15.6 H (11.5-15.5) % Neutrophils # 17.3 H (1.3-7.7) k/uL Total Protein 5.6 L (6.3-8.2) g/dL Albumin 2.9 L (3.5-5.0) g/dL Microbiology - Last 24 Hours (Table) 06/23/22 10:52 Urine Culture - Final Urine,Voided Escherichia coli 06/23/22 11:20 Blood Culture Gram Stain - Preliminary Blood Blood Culture - Preliminary Gram Neg Bacilli Assessment and Plan Assessment: status post left stent insertion for a septic stone. Doing well hemodynamically stable morning -will increase Ditropan 10 mg XL for stent discomfort -Okay for discharge from urology standpoint once what cultures and urine cultures are finalized, infectious diseases on board. -We will arrange for outpatient ureteroscopy and stent removal
--- NOTE | 2022-06-26 08:12 | PN ---
PROGRESS NOTE SUBJECTIVE: This 56-year-old woman was admitted with UTI, sepsis, also had ureteral stone. The patient had an aortic stent placement also. The blood cultures have grown E coli and the repeat blood cultures also growing gram-negative bacilli. PAST MEDICAL HISTORY: Reviewed. REVIEW OF SYSTEMS: A 14-point review of systems is negative except as mentioned earlier. CURRENT MEDICATIONS: Reviewed include Rocephin 2 g and dose and rest of medications are reviewed. PHYSICAL EXAMINATION: VITAL SIGNS: Pulse is 70, blood pressure 144/70, respiration 18. HEENT: Conjunctivae normal. NECK: No JVD. CARDIOVASCULAR: No murmurs. RESPIRATION: Breath sounds diminished at the bases. Scattered rhonchi. ABDOMEN: Soft, nontender. LEGS: No edema. NERVOUS SYSTEM: No focal deficits. LABS: WBC 25.5, hemoglobin is 10. ASSESSMENT: 1. Acute severe urinary tract infection with ureterolithiasis, present on admission. 2. Increased WBC. 3. Escherichia coli from the blood cultures. 4. Status post stent placement. 5. Left hydronephrosis. 6. Hypertension. 7. Hyperlipidemia. RECOMMENDATIONS AND DISCUSSION: I recommend to continue current medications and symptomatic treatment. I would recommend repeat cultures and also repeat labs. Closely monitor. Continue the broad- spectrum IV antibiotics. Closely follow with Infectious Disease and Urology. Prognosis guarded because of multiple complex medical issues. Further recommendations to follow. MMODL / IJN: [id number] /
[2022-06-26] MEDS: amLODIPine 5 MG TAB PO SCH (11:22)
[2022-06-26] MEDS: FLUoxetine HCL 20 MG CAP PO SCH (11:23)
[2022-06-26] MEDS: ATORVASTATIN 20 MG TAB PO SCH (11:23)
[2022-06-26] MEDS: DULoxetine HCL 60 MG CAPSULE.DR PO SCH (11:24)
[2022-06-26] MEDS: OXYBUTYNIN 10 MG TAB.ER.24 PO SCH (11:33)
--- NOTE | 2022-06-26 15:09 | P.PN ---
Subjective Progress Note Date: 06/25/22 Principal diagnosis: E coli UTI and bacteremia Patient is a 56-year-old -Irish female presented to the hospital with left-sided flank pain patient has been diagnosed with a complicated UTI with left-sided hydronephrosis in this patient with status post cystoscopy and ur eteral stent placement patient did have blood and urine cultures came back positive with E. coli. On today's evaluation that is 06/25/2022, the patient denies having any fever or any chills, the patient is breathing comfortably, denies having any chest pain has been coming of some shortness of breath but no significant cough or sputum production left-sided flank pain has improved no nausea no vomiting or diarrhea Objective - Vital Signs Vital signs: Vital Signs Temp 97.8 F 06/25/22 12:26 Pulse 70 06/25/22 12:26 Resp 18 06/25/22 12:26 BP 145/79 06/25/22 12:26 Pulse Ox 97 06/25/22 12:26 FiO2 Intake & Output 06/24/22 06/25/22 06/25/22 18:59 06:59 18:59 Intake Total 1700 1500 Balance 1700 1500 Intake: Intake, IV Titration 1100 800 Amount Sodium Chloride 0.9% 1, 1000 800 000 ml @ 50 mls/hr IV . Q20H [facility] Rx#:[id number] cefTRIAXone 1 gm In 100 Sodium Chloride 0.9% 50 ml @ 100 mls/hr IVPB Q24HR [facility] Rx#:[id number] Oral 600 700 Other: # Voids 2 3 - Exam GENERAL DESCRIPTION: Middle-aged female lying in bed in no distress RESPIRATORY SYSTEM: Unlabored breathing , decreased breath sounds at bases HEART: S1 S2 regular rate and rhythm , ABDOMEN: Soft , no tenderness EXTREMITIES: No edema feet - Labs CBC & Chem 7: 06/26/22 07:05 06/26/22 07:05 Labs: Abnormal Lab Results - Last 24 Hours (Table) 06/25/22 06/25/22 Range/Units 06:25 06:25 WBC 25.5 H (3.8-10.6) k/uL RBC 3.56 L (3.80-5.40) m/uL Hgb 10.0 L (11.4-16.0) gm/dL Hct 31.9 L (34.0-46.0) % Neutrophils # 21.6 H (1.3-7.7) k/uL Chloride 110 H (98-107) mmol/L Carbon Dioxide 21 L (22-30) mmol/L BUN 20 H (7-17) mg/dL Glucose 108 H (74-99) mg/dL Calcium 8.3 L (8.4-10.2) mg/dL Microbiology - Last 24 Hours (Table) 06/23/22 10:52 Urine Culture - Preliminary Urine,Voided Gram Neg Bacilli 06/23/22 11:37 Blood Culture Gram Stain - Preliminary Blood Blood Culture - Preliminary Escherichia coli 06/23/22 11:20 Blood Culture Gram Stain - Preliminary Blood Assessment and Plan (1) Bacteremia Current Visit: Yes Status: Acute Code(s): R78.81 - BACTEREMIA SNOMED Code(s): 0556328 Plan: 1patient presented to hospital with sepsis in this patient who did have a fever elevated white count elevated lactic acid source is likely left-sided complicated UTI in this patient did have evidence of moderate hydronephrosis in this patient status post cystoscopy with left ureteral stent placement and now with evidence of gram-negative bacteremia. 2patient to continue with Rocephin to 2 g daily and monitor clinical course closely Time with Patient: Less than 30
--- NOTE | 2022-06-26 15:13 | P.PN ---
Subjective Progress Note Date: 06/26/22 Principal diagnosis: E coli UTI and bacteremia Patient is a 56-year-old -Malian female presented to the hospital with left-sided flank pain patient has been diagnosed with a complicated UTI with left-sided hydronephrosis in this patient with status post cystoscopy and ur eteral stent placement patient did have blood and urine cultures came back positive with E. coli. On today's evaluation that is 06/26/2022, the patient remains to be afebrile, the patient is breathing comfortably, the patient denies having any chest pain , shortness of breath or cough , the patient left-sided flank pain has improved no nausea no vomiting or diarrhea Objective - Vital Signs Vital signs: Vital Signs Temp 98 F 06/26/22 02:00 Pulse 78 06/26/22 02:00 Resp 18 06/26/22 02:00 BP 151/79 06/26/22 02:00 Pulse Ox 98 06/26/22 02:00 FiO2 Intake & Output 06/25/22 06/26/22 06/26/22 18:59 06:59 18:59 Intake Total 480 1150 Output Total 0 Balance 480 1150 Intake: IV 350 0.9 @ 25mls/hr 200 Sodium Chloride 0.9% 1, 150 000 ml @ 50 mls/hr IV . Q20H [facility] Rx#:[id number] Oral 480 800 Output: Stool 0 Other: # Voids 4 6 - Exam GENERAL DESCRIPTION: Middle-aged female lying in bed in no distress RESPIRATORY SYSTEM: Unlabored breathing , decreased breath sounds at bases HEART: S1 S2 regular rate and rhythm , ABDOMEN: Soft , no tenderness EXTREMITIES: No edema feet - Labs CBC & Chem 7: 06/26/22 07:05 06/26/22 07:05 Labs: Abnormal Lab Results - Last 24 Hours (Table) 06/26/22 06/26/22 Range/Units 07:05 07:05 WBC 22.3 H (3.8-10.6) k/uL RBC 3.72 L (3.80-5.40) m/uL Hgb 10.1 L (11.4-16.0) gm/dL Hct 33.0 L (34.0-46.0) % MCHC 30.7 L (31.0-37.0) g/dL RDW 15.6 H (11.5-15.5) % Neutrophils # 17.3 H (1.3-7.7) k/uL Total Protein 5.6 L (6.3-8.2) g/dL Albumin 2.9 L (3.5-5.0) g/dL Microbiology - Last 24 Hours (Table) 06/23/22 11:20 Blood Culture Gram Stain - Final Blood Blood Culture - Final Escherichia coli 06/23/22 11:37 Blood Culture Gram Stain - Final Blood Blood Culture - Final Escherichia coli 06/23/22 10:52 Urine Culture - Final Urine,Voided Escherichia coli Assessment and Plan (1) Bacteremia Current Visit: Yes Status: Acute Code(s): R78.81 - BACTEREMIA SNOMED Code(s): 2532297 Plan: 1patient presented to hospital with sepsis in this patient who did have a fever elevated white count elevated lactic acid source is likely left-sided complicated UTI in this patient did have evidence of moderate hydronephrosis in this patient status post cystoscopy with left ureteral stent placement and now with evidence of gram-negative bacteremia. 2patient blood and urine has been finalized an E. coli which is a sensitive pathogen 3-patient seemed to have shown clinical improvement however the white count is still elevated that is slightly concerning we will hold her discharge today switch antibiotics to [facility] repeat a CBC tomorrow if the white count is still elevated may need a repeat CT to make sure that no evidence of any renal abscess Time with Patient: Less than 30
[2022-06-26] MEDS: AMPICILLIN-SULBACTAM 3 GM in SODIUM CHLORIDE 0.9% 100 ML IVPB SCH (17:39)
[2022-06-26] MEDS: ACETAMINOPHEN TAB 325 MG TAB PO PRN (20:35)
[2022-06-27] MEDS: AMPICILLIN-SULBACTAM 3 GM in SODIUM CHLORIDE 0.9% 100 ML IVPB SCH ×3 (00:58→12:27)
[2022-06-27] MEDS: SODIUM CHLORIDE 0.9% 1,000 ML IV SCH (00:59)
--- NOTE | 2022-06-27 04:04 | PN ---
PROGRESS NOTE This is a 56-year-old woman who was admitted with severe UTI and sepsis, is being closely monitored in ICU at this time. The blood cultures are repeatedly positive for E coli. PAST MEDICAL HISTORY: Reviewed. REVIEW OF SYSTEMS: A 14-point review of systems is negative except as mentioned earlier. CURRENT MEDICATIONS: Reviewed and include Rocephin, doses and the rest of medications reviewed. PHYSICAL EXAMINATION: VITAL SIGNS: Pulse is 70, blood pressure 144/70, respirations 20. HEENT: Conjunctivae normal. CARDIOVASCULAR: S1, S2 muffled. RESPIRATIONS: Breath sounds diminished at the bases. A few scattered rhonchi and crackles. ABDOMEN: Soft. Mild diffuse tenderness in the left side of the abdomen. NERVOUS SYSTEM: No focal deficits. LABS: Reviewed. WBC 22.2, hemoglobin 10.1. ASSESSMENT: 1. Acute severe urinary tract infection with urolithiasis, present on admission. 2. Increased WBC. 3. E coli from the blood cultures. 4. Status post stent placement. 5. Left hydronephrosis. 6. Hypertension. 7. Hyperlipidemia. RECOMMENDATIONS AND DISCUSSION: Recommend to continue current medications and symptomatic treatment. Repeat blood cultures and I would also recommend repeat labs. Closely follow. Further recommendations to follow. MMODL / IJN: [id number] /
[2022-06-27 06:38] LABS: Basophils # (A) 0.1 k/uL (0-0.2); Basophils % (A) 1 %; Eosinophils # (A) 0.3 k/uL (0-0.7); Eosinophils % (A) 2 %; HCT 35.6 % (34.0-46.0); HGB 10.9 gm/dL (11.4-16.0); Hypochromasia Slight; Lymphocytes # (A) 3.7 k/uL (1.0-4.8); Lymphocytes % (A) 20 %; MCH 27.1 pg (25.0-35.0); MCHC 30.8 g/dL (31.0-37.0); MCV 88.1 fL (80.0-100.0); Mean Platelet Volume 8.6; Monocytes % (A) 5 %; Neutrophils % (A) 70 %; Platelet Count 174 k/uL (150-450); RBC 4.04 m/uL (3.80-5.40); RDW 15.5 % (11.5-15.5); WBC 18.5 k/uL (3.8-10.6)
[2022-06-27 06:50] LABS: ALT 18 U/L (4-34); AST 25 U/L (14-36); African American GFR (CKD) >90 (>60 ml/min/1.73 sqM); Albumin 3.1 g/dL (3.5-5.0); Alkaline Phosphatase 125 U/L (38-126); Anion Gap 10 mmol/L; Blood Urea Nitrogen 11 mg/dL (7-17); Calcium 9.3 mg/dL (8.4-10.2); Carbon Dioxide 27 mmol/L (22-30); Chloride 102 mmol/L (98-107); Glucose 86 mg/dL (74-99); Non-African American GFR(CKD) 82 (>60 ml/min/1.73 sqM); Potassium 3.7 mmol/L (3.5-5.1); Sodium 139 mmol/L (137-145); Total Bilirubin 0.4 mg/dL (0.2-1.3); Total Protein 5.9 g/dL (6.3-8.2)
[2022-06-27] MEDS: PANTOPRAZOLE 40 MG TABLET PO SCH (06:57)
--- NOTE | 2022-06-27 10:06 | P.PN ---
Subjective Progress Note Date: 06/27/22 patient underwent left stent insertion 06/24 , blood culture growing E. coli. patient is hemodynamically stable. Denies any flank pain, remains afebrile. White count down to 18 from 22. Highly unlikely patient has a renal abscess given the lack of flank pain, fevers, and the improvement in her leukocytosis Objective - Vital Signs Vital signs: Vital Signs Temp 98.3 F 06/27/22 02:00 Pulse 74 06/27/22 02:00 Resp 17 06/27/22 02:00 BP 139/76 06/27/22 02:00 Pulse Ox 96 06/27/22 02:00 FiO2 Intake & Output 06/26/22 06/27/22 06/27/22 18:59 06:59 18:59 Intake Total 1318 1700 Balance 1318 1700 Intake: IV 600 1400 Ampicillin-Sulbactam 3 gm 200 In Sodium Chloride 0.9% 100 ml @ 200 mls/hr IVPB Q6HR [facility] Rx#:[id number] Sodium Chloride 0.9% 1, 600 1200 000 ml @ 50 mls/hr IV . Q20H [facility] Rx#:[id number] Intake, IV Titration 100 Amount cefTRIAXone 2 gm In 100 Sodium Chloride 0.9% 50 ml @ 100 mls/hr IVPB Q24HR [facility] Rx#:[id number] Oral 618 300 Other: # Voids 4 - Labs CBC & Chem 7: 06/27/22 05:48 06/27/22 05:48 Labs: Abnormal Lab Results - Last 24 Hours (Table) 06/27/22 06/27/22 Range/Units 05:48 05:48 WBC 18.5 H (3.8-10.6) k/uL Hgb 10.9 L (11.4-16.0) gm/dL MCHC 30.8 L (31.0-37.0) g/dL Neutrophils # 13.0 H (1.3-7.7) k/uL C-Reactive Protein 15.0 H (<1.0) mg/dL Total Protein 5.9 L (6.3-8.2) g/dL Albumin 3.1 L (3.5-5.0) g/dL Microbiology - Last 24 Hours (Table) 06/25/22 12:51 Blood Culture - Preliminary Blood No Growth after 24 hours 06/23/22 11:20 Blood Culture Gram Stain - Final Blood Blood Culture - Final Escherichia coli 06/23/22 11:37 Blood Culture Gram Stain - Final Blood Blood Culture - Final Escherichia coli Assessment and Plan Assessment: status post left stent insertion for a septic stone. Doing well hemodynamically stable morning -continue Ditropan 10 mg XL for stent discomfort -Okay for discharge from urology standpoint. I don't recommend any further imaging at this point as the patient remains afebrile, white count is trending down and no flank pain. Highly unlikely she has a renal abscess -We will arrange for outpatient ureteroscopy and stent removal
[2022-06-27] MEDS: OXYBUTYNIN 10 MG TAB.ER.24 PO SCH (10:18)
[2022-06-27] MEDS: amLODIPine 5 MG TAB PO SCH (10:19)
[2022-06-27] MEDS: DULoxetine HCL 60 MG CAPSULE.DR PO SCH (10:19)
[2022-06-27] MEDS: FLUoxetine HCL 20 MG CAP PO SCH (10:19)
[2022-06-27] MEDS: ATORVASTATIN 20 MG TAB PO SCH (10:19)
[2022-06-27 14:12] VITALS: BP 134/71; PULSE 70; RESP 15; TEMP 98.8
--- NOTE | 2022-06-28 02:47 | DS ---
DISCHARGE SUMMARY FINAL DIAGNOSES: 1. Acute severe urinary tract infection with urolithiasis present on admission. 2. Increased WBC. 3. E coli from the blood culture. 4. Status post stent placement. 5. Multiple medical issues. DISCHARGE DISPOSITION: The patient discharged HISTORY OF PRESENT ILLNESS: This 56-year-old woman was admitted with significant pain and UTI, also had urolithiasis. Patient underwent stent placement. The patient is being treated with broad-spectrum IV antibiotics improved significantly. PHYSICAL EXAMINATION: VITAL SIGNS: Stable. CARDIOVASCULAR: S1, S2. ABDOMEN: Soft. The patient is being discharged home in stable condition. Prognosis guarded. DISCHARGE MEDICATIONS: Course of Ceftin 500 mg p.o. b.i.d. for 10 days and follow up with Dr. Herrmann in Urology and Dr. Randall as recommended. Continue the rest of medications. Please refer to the medication reconciliation sheet for list of full medications. MMODL / IJN: [id number] / MTDD
[2022-06-28] MEDS ORDERED: ERGOCALCIFEROL 1,250 MCG (50,000 IU) CAPSULE PO SCH (09:00)
--- NOTE | 2022-07-03 16:54 | P.PN ---
Subjective Progress Note Date: 06/27/22 Principal diagnosis: E coli UTI and bacteremia Patient is a 56-year-old -[place] female presented to the hospital with left-sided flank pain patient has been diagnosed with a complicated UTI with left-sided hydronephrosis in this patient with status post cystoscopy and ur eteral stent placement patient did have blood and urine cultures came back positive with E. coli. On today's evaluation that is 06/27/2022, the patient denies any fever or any chills, the patient is breathing comfortably on room air, the patient denies having any chest pain , shortness of breath or cough , the patient left-sided flank pain has improved , the patient denies nausea no vomiting or diarrhea Objective - Vital Signs Vital signs: Vital Signs Temp 99.2 F 06/27/22 08:00 Pulse 62 06/27/22 08:00 Resp 16 06/27/22 08:00 BP 148/82 06/27/22 08:00 Pulse Ox 98 06/27/22 08:00 FiO2 Intake & Output 06/26/22 06/27/22 06/27/22 18:59 06:59 18:59 Intake Total 1318 1700 Balance 1318 1700 Intake: IV 600 1400 Ampicillin-Sulbactam 3 gm 200 In Sodium Chloride 0.9% 100 ml @ 200 mls/hr IVPB Q6HR [facility] Rx#:[id number] Sodium Chloride 0.9% 1, 600 1200 000 ml @ 50 mls/hr IV . Q20H [facility] Rx#:[id number] Intake, IV Titration 100 Amount cefTRIAXone 2 gm In 100 Sodium Chloride 0.9% 50 ml @ 100 mls/hr IVPB Q24HR [facility] Rx#:[id number] Oral 618 300 Other: # Voids 4 - Exam GENERAL DESCRIPTION: Middle-aged female lying in bed in no distress RESPIRATORY SYSTEM: Unlabored breathing , decreased breath sounds at bases HEART: S1 S2 regular rate and rhythm , ABDOMEN: Soft , no tenderness EXTREMITIES: No edema feet - Labs CBC & Chem 7: 06/27/22 05:48 06/27/22 05:48 Labs: Abnormal Lab Results - Last 24 Hours (Table) 06/27/22 06/27/22 Range/Units 05:48 05:48 WBC 18.5 H (3.8-10.6) k/uL Hgb 10.9 L (11.4-16.0) gm/dL MCHC 30.8 L (31.0-37.0) g/dL Neutrophils # 13.0 H (1.3-7.7) k/uL C-Reactive Protein 15.0 H (<1.0) mg/dL Total Protein 5.9 L (6.3-8.2) g/dL Albumin 3.1 L (3.5-5.0) g/dL Microbiology - Last 24 Hours (Table) 06/25/22 12:51 Blood Culture - Preliminary Blood No Growth after 24 hours 06/23/22 11:20 Blood Culture Gram Stain - Final Blood Blood Culture - Final Escherichia coli 06/23/22 11:37 Blood Culture Gram Stain - Final Blood Blood Culture - Final Escherichia coli Assessment and Plan (1) Bacteremia Status: Acute Code(s): R78.81 - BACTEREMIA SNOMED Code(s): 6530381 Plan: 1patient presented to hospital with sepsis in this patient who did have a fever elevated white count elevated lactic acid source is likely left-sided complicated UTI in this patient did have evidence of moderate hydronephrosis in this patient status post cystoscopy with left ureteral stent placement and now with evidence of gram-negative bacteremia. 2patient blood and urine has been finalized an E. coli which is a sensitive pathogen 3-patient seemed to have shown clinical improvement and the white count is trending down the patient is feeling better and wants to go home, prescription for Ceftin already sent to pharmacy and a close outpatient follow-up Time with Patient: Less than 30
== END 2022-06-27 14:38 | disposition home or self-care (01) | DRG 854 ==
LOC: EC 09:45 → OBSVTOIN 12:43 → 6NMEDSUR 12:43 → INTOOBSV 12:43 → 6NMEDSUR 14:15 → 2SICU 18:00 → UNDODISOB 06-27 14:38
PROVIDERS: ADMIT Hospitalist; ATTEND Hospitalist
PROC: 0T778DZ Dilation of Left Ureter with Intraluminal Device, Via Natural or Artificial Opening Endoscopic (ICD-10-PCS; principal; 2022-06-23 13:30)
DX: A41.51 Sepsis due to Escherichia coli [E. coli] (principal); E87.2 Acidosis; N17.9 Acute kidney failure, unspecified; N13.6 Pyonephrosis; I10 Essential (primary) hypertension; E04.2 Nontoxic multinodular goiter; F32.A Depression, unspecified; B96.20 Unspecified Escherichia coli [E. coli] as the cause of diseases classified elsewhere; E78.00 Pure hypercholesterolemia, unspecified; G89.29 Other chronic pain; M54.9 Dorsalgia, unspecified; Z87.440 Personal history of urinary (tract) infections; Z80.1 Family history of malignant neoplasm of trachea, bronchus and lung; Z84.1 Family history of disorders of kidney and ureter; Z98.891 History of uterine scar from previous surgery; Z90.710 Acquired absence of both cervix and uterus; Z98.890 Other specified postprocedural states; Z82.5 Family history of asthma and other chronic lower respiratory diseases; Z79.1 Long term (current) use of non-steroidal anti-inflammatories (NSAID); Z79.899 Other long term (current) drug therapy; Z91.041 Radiographic dye allergy status; Z91.013 Allergy to seafood; Z88.2 Allergy status to sulfonamides; Z88.8 Allergy status to other drugs, medicaments and biological substances; Z91.018 Allergy to other foods; Z91.048 Other nonmedicinal substance allergy status; Z84.2 Family history of other diseases of the genitourinary system; Z90.89 Acquired absence of other organs; Z80.8 Family history of malignant neoplasm of other organs or systems; Z87.19 Personal history of other diseases of the digestive system; Z98.51 Tubal ligation status
CPT/HCPCS: 36415; 71045; 74177; 80048; 80053; 81001; 82150; 83605; 83690; 84484; 85025; 86140; 87040; 87077; 87086; 87186; 93005; 96361; 96374; 96375; 99285

== ENCOUNTER → 2022-07-04 | Outpatient (CLI) | payer BC ==
[2022-07-04 16:24] LABS: Appearance,Urine Clear (Clear); Bilirubin,Urine Negative (Negative); Blood,Urine Large (Negative); Color,Urine Yellow (Yellow); Ketones,Urine Negative (Negative); Nitrite,Urine Negative (Negative); Specific Gravity,Urine 1.011 (1.001-1.030); Urobilinogen,Urine 0.2 (0.2,1.0)
[2022-07-04 16:29] LABS: Bacteria,Urine None Seen /HPF (None Seen)
[2022-07-04 17:04] LABS: HCT 36.6 % (37.2-46.3); HGB 11.8 g/dL (12.0-15.0); MCH 27.3 pg (27.0-32.0); MCHC 32.2 g/dL (32.0-37.0); MCV 84.5 fL (80.0-97.0); Mean Platelet Volume 9.4 fL (9.5-12.2); NRBC Per 100 WBC 0 /100 WBCS (0.0-0.0); Platelet Count 615 X 10*3/uL (140-440); RBC 4.33 X 10*6/uL (4.10-5.20); RDW 15.9 % (11.5-14.5); WBC 13.79 X 10*3/uL (4.50-10.00)
[2022-07-04 20:18] LABS: African American GFR (CKD) 71.9 (60.0-200.0); Anion Gap 14.8 mmol/L (10.00-18.00); BUN/Creat Ratio 10.7 Ratio (12.00-20.00); Blood Urea Nitrogen 10.7 mg/dL (9.0-27.0); Calcium 10.6 mg/dL (8.7-10.3); Carbon Dioxide 20.2 mmol/L (20.0-27.5); Non-African American GFR(CKD) 62.1 (60.0-200.0); Potassium 4.3 mmol/L (3.5-5.5)
== END | disposition home or self-care (01) ==
LOC: LABPAT 11:32
PROVIDERS: ATTEND Urology
DX: Z01.812 Encounter for preprocedural laboratory examination (principal); N20.0 Calculus of kidney; N20.1 Calculus of ureter
CPT/HCPCS: 80048; 81001; 85027; 87086

== ENCOUNTER 2022-07-20 10:54 | Day surgery (SDC) | payer BC ==
[2022-07-17 12:36] VITALS: BMI 25.0
--- NOTE | 2022-07-20 09:32 | P.HPIHPCON ---
History of Present Illness H&P Date: 07/20/22 This is a 57-year-old female history of a 4 mm left-sided distal stone, she presented septic underwent stent insertion in June 23. Of note she also has bilateral nonobstructing stones. Discussed with her the option of ureteroscopy . Discussed also risks of anesthesia. Discussed with right-sided stones are fairly small, and if i'm not able to pass the ureteroscope on the right side without dilating then will not need to address the right-sided stones. She understood all the risk and agreed to proceed Consent for Procedure: I have explained the operation/procedure to the patient, including the risks, benefits, side effects, alternative therapies (including not receiving the proposed treatment or service), the likelihood of the patient achieving his/her goals, and potential recuperation problems for the procedure/sedation/analgesia, as well as any blood products, if indicated. I also explained to the patient the risks, benefits and side effects of the alternatives, as well as the risks related to not receiving the proposed procedure, care, treatment, or services. Past Medical History Past Medical History: Hyperlipidemia, Hypertension Additional Past Medical History / Comment(s): kidney stones, chronic back pain, thyroid nodules History of Any Multi-Drug Resistant Organisms: None Reported Past Surgical History: Adenoidectomy, Section, Hysterectomy, Tonsillectomy Additional Past Surgical History / Comment(s): ureter stent lt ureter, breast reduction, tummy tuck, hemorrhoid removal in June 2020 Past Anesthesia/Blood Transfusion Reactions: No Reported Reaction Additional Past Anesthesia/Blood Transfusion Reaction / Comment(s): no hx blood transfusion Smoking Status: Never smoker - Past Family History Mother Family Medical History: Cancer Additional Family Medical History / Comment(s): lung Father Family Medical History: COPD Additional Family Medical History / Comment(s): mesothelioma Medications and Allergies Home Medications Medication Instructions Recorded Confirmed Type amLODIPine [Norvasc] 5 mg PO QAM 08/19/20 07/17/22 History FLUoxetine HCL [PROzac] 20 mg PO QAM 03/25/21 07/17/22 History DULoxetine HCL [Cymbalta] 60 mg PO QAM 06/23/22 07/17/22 History Ergocalciferol [Vitamin D2 (1250 1,250 mcg PO MALIN 06/23/22 07/17/22 History Mcg = 15802 Iu)] HYDROcodone/APAP 7.5-325MG [Cobb 1 tab PO Q6H PRN 06/23/22 07/17/22 History 7.5-325] Pitavastatin Calcium [Livalo] 4 mg PO DAILY 06/23/22 07/17/22 History methocarbamoL [Robaxin-750] 750 mg PO TID PRN 06/23/22 07/17/22 History Acetaminophen Tab [Tylenol] 650 mg PO Q6HR PRN tab 06/27/22 07/17/22 Rx Allergies Allergy/AdvReac Type Severity Reaction Status Date / Time cigarette smoke Allergy Swelling Verified 07/17/22 12:27 eyes Iodinated Contrast Media Allergy Dyspnea Verified 07/17/22 12:27 lisinopril Allergy Swelling Verified 07/17/22 12:27 lips/angioedema Mushroom Allergy Itching Verified 07/17/22 12:27 shellfish derived [Shrimp] Allergy Itching Verified 07/17/22 12:27 Sulfa (Sulfonamide Allergy Unknown Verified 07/17/22 12:27 Antibiotics) tomato Allergy Itching Verified 07/17/22 12:27 Surgical - Exam - General no distress, no pain - Eyes normal ocular movement, pale - ENT normal nares, normal mucosa - Respiratory normal expansion, normal respiratory effort Assessment and Plan Assessment: Or for bilateral ureteroscopy, holmium laser lithotripsy, stone basketing and left stent removal
[~2022-07-20 10:54] MED LIST: DEXAMETHASONE SOD PHOSPHATE 4 MG/ML 1 ML VIAL IV ONE; HYDROmorphone 0.5 MG/0.5 ML SYRINGE IVP PRN; LACTATED RINGERS 1,000 ML IV SCH; LIDOCAINE 1% (10MG/ML) FOR IV START INTRADERMA PRN; MIDAZOLAM 2 MG/2 ML VIAL IV PRN; ONDANSETRON 4 MG/2 ML VIAL IVP ONE
--- NOTE | 2022-07-20 11:22 | XR ---
KUB HISTORY: Kidney stones KUB on [address] scan 06/23/2022 Double-J stent is present on the left. There are vascular calcifications present within the pelvis. O verlying artifact is noted. Arthropathies noted within the shoulders. Degenerative disc changes prese nt in the visualized lumbosacral spine. Patient's distal ureteral calculus seen on prior CT is seen a t the level of the distal left ureter and measures approximately 4 mm. IMPRESSION: Postprocedural changes. Distal left ureteral calculus.
[2022-07-20] MEDS ORDERED: LACTATED RINGERS 1,000 ML IV ONE (11:48)
[2022-07-20] MEDS ORDERED: fentaNYL (PF) 50 MCG/ML 2 ML AMP ONE (12:25)
[2022-07-20] MEDS ORDERED: MIDAZOLAM 2 MG/2 ML VIAL ONE (12:25)
[2022-07-20] MEDS ORDERED: PROPOFOL 10 MG/ML 20 ML VIAL IV ONE (12:25)
[2022-07-20] MEDS ORDERED: LIDOCAINE 2% INJ 20 MG/ML (2 ML VIAL) ONE (12:25)
--- NOTE | 2022-07-20 13:34 | P.OP ---
Date of Procedure: 07/20/22 Preoperative Diagnosis: Left ureteral stone, bilateral renal stones Postoperative Diagnosis: Same Procedure(s) Performed: Cystoscopy, bilateral ureteroscopy, holmium laser lithotripsy, left-sided stone basketing and stent removal Implants: None Anesthesia: VENICE Surgeon: Esteban Saez Estimated Blood Loss (ml): 1 Pathology: other (Left ureteral stone) Indications for Procedure: This is a 57-year-old female history of a 4 mm left-sided distal stone, she presented septic underwent stent insertion in June 23. Of note she also has bilateral nonobstructing stones. Discussed with her the option of ureteroscopy . Discussed also risks of anesthesia. Discussed with right-sided stones are fairly small, and if i'm not able to pass the ureteroscope on the right side without dilating then will not need to address the right-sided stones, given there small size . She understood all the risk and agreed to proceed Operative Findings: Left-sided distal ureteral stone, multiple small bilateral nonobstructing stones Description of Procedure: Patient brought to the operating room, general anesthesia was induced. She was prepped and draped in sterile fashion and placed in dorsal lithotomy position. Cystoscopy fitted with 21 ecuadorean sheath was inserted per urethra, cystoscopy was performed which showed no abnormality within the bladder. Attention was then carried to the left ureteral stent which was grasped and removed to the meatus. Next a sensor wire was advanced through the stent and the stent was removed with the wire in place. Next a semirigid ureteroscope was inserted per urethra and advanced up the left ureteral orifice. The stone was encountered in distal ureter. Using the holmium laser the stone was fragmented into small fragments, sizable fragments were removed and sent for analysis. At this time the scope was advanced all the way up to the UPJ which showed no additional stones. Pullback ureteroscopy was performed which showed no injury to the ureter or any sizable fragments. Next the flexible ureteroscope was passed over the wire and into the kidney. Renoscopy was performed which showed multiple small stones throughout the kidney, stones measured 2 mm or smaller. Using the holmium laser the stones were further dusted. Repeat renoscopy showed no sizable fragments or injury to the kidney. Pullback ureteroscopy was performed which showed no injury to the kidney or any ureteral stone. At this time the cystoscope was reinserted and the right ureteral orifice was intubated with the wire. Next the flexible ureteroscope was advanced over the wire and into the kidney. The scope passed easily over the wire without resistance. Renoscopy was performed which showed 2 fairly small stones within the kidney. Using the holmium laser the stones were dusted. Repeat renoscopy showed no sizable fragments within the kidney or injury to the kidney. Of note patient had stenosis of the infundibulum in the upper pole, I was not able to pass the scope through the infundibulum. Pullback ureteroscopy was performed which showed no injury to the ureter or any ureteral stones. The bladder was emptied at the end of the case. Patient tolerated procedure well was taken to recovery in stable condition
[2022-07-20 13:36] VITALS: RESP 16; TEMP 97.1
--- NOTE | 2022-07-20 13:46 | FL ---
Fluoroscopy HISTORY: Left ureteral calculus 9 seconds fluoroscopy time supplied to the referring clinician. 1 intraoperative C-arm images docume nt the procedure. See dictated report from urology.
[2022-07-20 15:02] VITALS: BP 150/85; PULSE 63
== END 2022-07-20 15:51 | disposition home or self-care (01) ==
LOC: OR 10:54
PROVIDERS: ATTEND Urology
DX: N20.2 Calculus of kidney with calculus of ureter (principal); I10 Essential (primary) hypertension; E78.5 Hyperlipidemia, unspecified; G89.29 Other chronic pain; E04.1 Nontoxic single thyroid nodule; F12.90 Cannabis use, unspecified, uncomplicated; F32.9 Major depressive disorder, single episode, unspecified; Z90.89 Acquired absence of other organs; Z90.710 Acquired absence of both cervix and uterus; Z98.891 History of uterine scar from previous surgery; Z98.86 Personal history of breast implant removal; Z80.1 Family history of malignant neoplasm of trachea, bronchus and lung; Z83.6 Family history of other diseases of the respiratory system; Z91.041 Radiographic dye allergy status; Z88.8 Allergy status to other drugs, medicaments and biological substances; Z46.6 Encounter for fitting and adjustment of urinary device; Z79.899 Other long term (current) drug therapy
CPT/HCPCS: 52353; 82365; 74018; C1769; J2250; J1100; J0690; J2405; J3010; J2704; J1170; J2001

== ENCOUNTER → 2022-10-12 | Outpatient (CLI) | payer BC ==
[2022-10-12 10:42] VITALS: BP 142/83; PULSE 77; RESP 18; TEMP 98.2
--- NOTE | 2022-10-14 07:40 | P.PAINPG ---
PQRS Measure Charge Sheet Comment: HISTORY OF PRESENT ILLNESS: 57 yr old female as a referral from Dr Martinez presents today w severe and chronic LBP x 15 yrs secondary to for evaluation. Pt states pain level is at 6/10 in intensity, constant, localized in the lower lumbar spine, achy in character w occasional shooting pain towards the BLEs, R>L. Pt underwent a BL RFA L3-L5 in Nov 2021 which she experienced 80 % pain relief x 10 mo s/p procedure. Pain is provoked by walking/ standing for periods of 10 min or more. Pain is alleviated by injections, PT 3 yrs ago, home exercises daily, massage weekly which ended Jun 2022 when she was hospitalized, medications (Nelson, Aleve, Tylenol), heat, ice, repositioning and rest. PMH: Hyperlipidemia, HTN, Nephrolithiasis PSH: Cystoscopy/ BL Uretroscopy/ Lithotripsy (Jul 2022), Adenoidectomy, Section, Hysterectomy, Tonsillectomy, Breast Reduction, Tummy Tuck, Hemorrhoidectomy (Jun 2020), BL RFA (Nov 2021), LESIs L5-S1 (last Jul 2022) SH: Never smoker, No ETOH abuse, No illicit drug use FH: Mo- Lung CA. Fa- COPD/ Mesothelioma All: See list Meds: See list REVIEW OF ORGAN SYSTEMS: CONSTITUTIONAL: No fevers or chills. No recent weight loss. NEUROLOGICAL: + numbness and tingling along the distal extremities. No seizure disorders or headaches. MUSCULOSKELETAL: + pain PSYCHIATRIC: Denies current depression or suicidal thoughts. Physical Examinations : Constitutional : Cooperative , not in acute distress . Neurologic : Cranial nerve II to XII intact. No focal neurological deficits. Psychiatric : alert & oriented x 3. Matching mood & appropriate affect. Judgment & insight intact. Musculoskeletal : Cervical Spine Motor strength in the deltoid and biceps: Normal right side. Normal Left side Motor strength biceps and the wrist extensors: Normal right side . Normal left side Motor strength in the triceps muscle: Normal right side. Normal left side Deep tendon reflexes: Normal at the biceps. Normal at Brachioradialis. Normal at triceps Vertebral body tenderness to deep palpation over Cervical facet loading test: positive bilaterally Spurling test: positive bilaterally Neck distraction test: positive bilaterally Jade sign: positive bilaterally Lumbar spine Motor strength lower extremities ,thigh and legs 5/5 Right side , 5/5 Left side Deep tendon reflexes : Normal Knee Jerk. Normal Ankle Jerk Vertebral body tenderness over Lumbar facet Loading Test: positive Right / positive Left TTP over BL L4-L:5, L5-S1, R>L facets Range of motion of the lumbar spine Flexion 30 degrees, extension 10 degrees Straight Leg Raise test: Left/ Right positive at degree Chris test: positive right / positive left. Severe tenderness over the Sacroiliac joint on the Right / Left sides Gaenslen test: positive bilaterally Seated flexion test: positive bilaterally. Sacral spine : Severe tenderness over the Sacroiliac joint: right side / left side Range of motion: Flexion of the lumbar spine <60 degrees Range of motion: Extension of the lumbar spine <20 degrees Gaenslen's Test positive Preet's Test positive Chris test: positive right side / left side Thigh Thrust Test Sacral Thrust Test Imaging: MRI without contrast of the lumbar spine from Nov 2021 reviewed Assessment/ Plan : Lumbar DDD, Lumbar spndylosis Recommendation of BL RFA L4-L5, L5-S1. Pt experienced sufficient and [employer] results w last BL RFA procedure. Risks, benefits of procedure discussed and patient verbalized understanding. Admits to aspirin or anti- coagulant use or medical history of diabetes. Protocol for discontinuation/ continuation of medications clayton procedure discussed. All questions answered. I have spent greater than 30 minutes on patient care today. Dr Navarrete was available by phone for the evaluation of this patient. The time was used to review the medical records including relevant urine studies and Prescription history (MAPs), review of the available imaging, evaluation and examination of the patient, coordination of care with the medical staff and if applicable referring physicians, as well as creation of the medical record PQRS Narrative: Smoking Status Never smoker Home Medications: Ambulatory Orders amLODIPine [Norvasc] 5 mg PO QAM 08/19/20 FLUoxetine HCL [PROzac] 20 mg PO QAM 03/25/21 DULoxetine HCL [Cymbalta] 60 mg PO QAM 06/23/22 Ergocalciferol [Vitamin D2 (1250 Mcg = 33945 Iu)] 1,250 mcg PO MALIN 06/23/22 HYDROcodone/APAP 7.5-325MG [Nelson 7.5-325] 1 tab PO Q6H PRN 06/23/22 Pitavastatin Calcium [Livalo] 4 mg PO DAILY 06/23/22 methocarbamoL [Robaxin-750] 750 mg PO TID PRN 06/23/22 Acetaminophen Tab [Tylenol] 650 mg PO Q6HR PRN tab 06/27/22 Cephalexin [Keflex] 500 mg PO Q8HR #15 cap 07/20/22 Ketorolac [Toradol] 10 mg PO Q6HR PRN #15 tab 07/20/22 Controlled Substance Measures - Controlled Substance Measures Is patient prescribed a controlled substance at discharge?: No
== END ==
LOC: PNWHC3 09:51
PROVIDERS: ATTEND Specialist
DX: M47.26 Other spondylosis with radiculopathy, lumbar region (principal); Z91.013 Allergy to seafood; Z88.2 Allergy status to sulfonamides; Z91.018 Allergy to other foods; Z77.22 Contact with and (suspected) exposure to environmental tobacco smoke (acute) (chronic); Z88.8 Allergy status to other drugs, medicaments and biological substances; Z91.041 Radiographic dye allergy status
CPT/HCPCS: 99211

== ENCOUNTER 2022-11-13 06:20 | Day surgery (SDC) | payer BC ==
[2022-11-13] MEDS ORDERED: LACTATED RINGERS 1,000 ML IV SCH (06:30)
[2022-11-13] MEDS ORDERED: LIDOCAINE 1% (10MG/ML) FOR IV START INTRADERMA PRN (06:30)
[2022-11-13 06:39] VITALS: TEMP 98
[2022-11-13] MEDS ORDERED: LACTATED RINGERS 1,000 ML IV ONE (06:39)
[2022-11-13] MEDS ORDERED: methylPREDNISolone ACETATE 40 MG/ML 1 ML VIAL ONE (06:58)
[2022-11-13] MEDS ORDERED: ROPIVACAINE 5 MG/ML 20 ML AMPULE ONE (06:58)
[2022-11-13] MEDS ORDERED: MIDAZOLAM 2 MG/2 ML VIAL ONE (06:58)
[2022-11-13] MEDS ORDERED: fentaNYL (PF) 50 MCG/ML 2 ML AMP ONE (06:58)
--- NOTE | 2022-11-13 07:29 | P.PCN ---
Date of Procedure: 11/13/22 Procedure(s) Performed: PREOPERATIVE DIAGNOSIS: 1-Lumbar Spondylosis with Facet Arthropathy without myelopathy. 2- Lumber degenerative disc disease. POSTOPERATIVE DIAGNOSIS: 1- Lumbar Spondylosis with Facet Arthropathy without myelopathy. 2- Lumber degenerative disc disease. PROCEDURES : Bilateral Radiofrequency thermocoagulation, L3 , L4 , and L5 medial branch, with fluoroscopic guidance (fluoroscopy images available in the radiology department) ( to denervate the facet joint at bilateral L4-5 ,and L5-S1 levels ). ANESTHESIA: Monitored anesthesia care as per anesthesia department . EBL: Minimal PROCEDURE INDICATION: The patient with low back pain secondary to lumbar facet arthropathy who had more than 50% relief of her pain with previous diagnostic lumbar medial branch block with bupivacaine and she gets pain relief after RFA medial branch lumbar area which was done previously, and she is here today to have a repeat RFA. PROCEDURE DESCRIPTION / TECHNIQUE: The patient was seen and identified in the preoperative area. Risks, benefits, complications, including but not limited to risk of infection ,bleeding , allergic reactions to the medications and no complete pain releife , and alternatives were discussed with the patient, the patient agreed to proceed with the procedure and signed the consent. IV was started. Vital signs remained stable throughout the procedure. Patient was taken to the OR and time out was completed. The patient was placed in the prone position on the procedure table. The lumber area was prepped and draped in the usual sterile fashion. . Vital signs were closely monitored during the procedure .IV sedation was used during the procedure to decrease patients anxiety. Using AP and then oblique fluoroscopy, the ``eye of the Pk dog corresponding to the connection between the superior and transverse articular processes of right L3, L4, and L5 were identified, marked, and localized with 1% lidocaine. Subsequently, a [id number] radiofrequency cannula with a 10- mm active tip was advanced guided by fluoroscopy to each of the``eyes of the Pk dog at right L3, L4, and L5. Each site then underwent sensory testing at 50 Hz and 0 to 1 volt and motor testing at 2.5 Hz and 0 to 3 volt with l ocal stimulation, but no radicular symptoms down the legs. Thereafter each sites underwent radiofrequency thermocoagulation at 80 degrees celsius for 90 seconds after injecting 0.5 ml of PF Ropivacaine 1ml, then after the thermocoagulation done , 1 ml of the block solution containing Depo-Medrol 20 mg and 3 ml of Ropivacaine 0.5% was injected at the right L3 , L4 , and L5 , levels after negative aspiration of CSF and blood and with no paresthesias. Cannulas were retracted while injecting lidocaine 1% until the needle is out. The same procedure was repeated at the level of Left L3, L4, and L5 levels. At the end of the procedure, the skin was cleansed and bandages were applied. COMPLICATIONS: No acute complications. DISPOSITION / PLANS: The patient was placed in a supine position and transferred to the recovery area in a stable condition for observation and was discharged from the recovery room after meeting discharge criteria. Home discharge instructions given to the patient by the staff. The patient was reexamined prior to discharge. The patient will schedule a follow up in the clinic in 2-4 weeks.
[2022-11-13] MEDS ORDERED: IV FLUID CONTINUATION 1,000 ML IV ONE (07:31)
[2022-11-13 07:35] VITALS: RESP 16
[2022-11-13 07:49] VITALS: BP 138/80; PULSE 71
--- NOTE | 2022-11-16 11:42 | FL ---
EXAMINATION TYPE: FL guided pain mgmt statistic DATE OF EXAM: 11/13/2022 HISTORY: Fluoroscopy time 13 seconds of fluoroscopy provided. IMPRESSION: 1. Fluoroscopy time.
== END 2022-11-13 08:06 | disposition home or self-care (01) ==
LOC: ORPAIN 06:20
PROVIDERS: ATTEND Specialist
DX: M47.816 Spondylosis without myelopathy or radiculopathy, lumbar region (principal); M51.36 Other intervertebral disc degeneration, lumbar region; I10 Essential (primary) hypertension; E78.5 Hyperlipidemia, unspecified; E07.9 Disorder of thyroid, unspecified; Z79.890 Hormone replacement therapy; Z79.899 Other long term (current) drug therapy; Z88.2 Allergy status to sulfonamides; Z88.8 Allergy status to other drugs, medicaments and biological substances; Z91.013 Allergy to seafood; Z90.89 Acquired absence of other organs; Z90.710 Acquired absence of both cervix and uterus; Z98.891 History of uterine scar from previous surgery
CPT/HCPCS: 64635; 64636; J2250; J1030; J3010; J2795

== ENCOUNTER → 2022-12-02 | Outpatient (CLI) | payer BC ==
[2022-12-02 10:05] VITALS: BP 149/82; PULSE 75; RESP 18
--- NOTE | 2022-12-02 14:07 | P.PAINPG ---
PQRS Measure Charge Sheet Comment: A 57 yr old female with a history of severe and chronic LBP secondary to lumbar DDD and spondylosis with facet arthropathy without myelopathy presents today for evaluation s/p BL RFA L3-L5. Pt states she experienced 85 % pain relief s/p procedure. Pain level is provoked at 5 /10 in intensity, constant, localized in the lumbar spine, sharp in character w shooting towards the L hip. Pain is provoked by lifting. Pain is alleviated with PT in the past, massage weekly, home exercise daily, meds (Aleve, Robaxin), repositioning and rest. Interventional pain procedures completed include BL RFA L3-L5 Patient is currently on Aleve, Robaxin Patient denies any side effects of the medication(s), denies excessive drowsiness or sleepiness, denies suicidal ideation and reports that the current pain medication is helping to control the pain and improve activities of daily living. Patient denies any motor or sensory deficits. Patient denies any fever or night sweats, denies any change in the bowel movements or urination. Physical Examination: -Constitutional: Cooperative. Not in acute distress . - Neurologic: Cranial nerve II to XII intact. No focal neurological deficits. - Psychatric: Alert & oriented x 3. Matching mood & appropriate affect. Judgment and insight intact. - Musculoskeletal: Cervical spine: Muscle bulk/ tone/ strength in the bilateral upper extremities normal Vertebral body tenderness to palpation over Spurling test positive Distraction test positive Facet loading test positive Thoracic spine Muscle bulk / tone/ strength in the bilateral paraspinal muscles normal Vertebral body tender to palpation over Facet loading test positive Lumbar spine: Motor bulk/ tone/ strength lower extremities , thigh and legs : 5/5 Deep tendon reflexes : Normal Knee Jerk. Normal Ankle Jerk . Vertebral body tenderness to palpation over Lumbar Facet Loading Test positive Straight Leg Raise: positive at 30 degrees right side/ left side Gaenslen's Test positive Sacral spine : Severe tenderness over the Sacroiliac joint: right side / left side Range of motion: Flexion of the lumbar spine <60 degrees Range of motion: Extension of the lumbar spine <20 degrees Gaenslen's Test positive Chris test: positive right side / left side Thigh Thrust Test Sacral Thrust Test Assessment and plan: Chronic LBP secondary to lumbar DDD, spondylosis with facet arthropathy without myelopathy Patient exhibited substantial and sufficient pain relief s/p procedure. She will continue to manage residual pain at home and may return to the clinic on an as needed basis. All patient questions answered I have spent less than 30 minutes on patient care today. Dr Navarrete was available by phone for the evaluation of this patient. The time was used to review the medical records including relevant urine studies and Prescription history (MAPs), review of the available imaging, evaluation and examination of the patient, coordination of care with the medical staff and if applicable referring physicians, as well as creation of the medical record PQRS Narrative: Smoking Status Never smoker Hx Alcohol Use (MH) No Home Medications: Ambulatory Orders amLODIPine [Norvasc] 5 mg PO QAM 08/19/20 FLUoxetine HCL [PROzac] 20 mg PO QAM 03/25/21 DULoxetine HCL [Cymbalta] 60 mg PO QAM 06/23/22 Ergocalciferol [Vitamin D2 (1250 Mcg = 10837 Iu)] 1,250 mcg PO MALIN 06/23/22 HYDROcodone/APAP 7.5-325MG [[place] 7.5-325] 1 tab PO Q6H PRN 06/23/22 Pitavastatin Calcium [Livalo] 4 mg PO DAILY 06/23/22 methocarbamoL [Robaxin-750] 750 mg PO TID PRN 06/23/22 Acetaminophen Tab [Tylenol] 650 mg PO Q6HR PRN tab 06/27/22 Cephalexin [Keflex] 500 mg PO Q8HR #15 cap 07/20/22 Ketorolac [Toradol] 10 mg PO Q6HR PRN #15 tab 07/20/22 Controlled Substance Measures - Controlled Substance Measures Is patient prescribed a controlled substance at discharge?: No
== END ==
LOC: PNWHC3 09:28
PROVIDERS: ATTEND Specialist
DX: M47.816 Spondylosis without myelopathy or radiculopathy, lumbar region (principal); M51.36 Other intervertebral disc degeneration, lumbar region; G89.29 Other chronic pain; Z91.09 Other allergy status, other than to drugs and biological substances; Z91.048 Other nonmedicinal substance allergy status; Z91.041 Radiographic dye allergy status; Z91.018 Allergy to other foods; Z88.2 Allergy status to sulfonamides; Z91.013 Allergy to seafood
CPT/HCPCS: 99211

== ENCOUNTER 2023-08-21 09:49 | Emergency (ER) | payer BC ==
[2023-08-21 10:06] VITALS: TEMP 97
[2023-08-21] MEDS ORDERED: SODIUM CHLORIDE 0.9% 1,000 ML IV ONE (10:08)
[2023-08-21] MEDS ORDERED: KETOROLAC 15 MG/ML 1 ML VIAL IVP STA (10:08)
[2023-08-21 10:28] LABS: Appearance,Urine Clear (Clear); Basophils % (A) 0 %; Bilirubin,Urine Negative (Negative); Blood,Urine Negative (Negative); Color,Urine Yellow; Eosinophils # (A) 0.3 k/uL (0-0.7); Eosinophils % (A) 3 %; Glucose,Urine (UA) Negative (Negative); HCT 41.8 % (34.0-46.0); HGB 13.4 gm/dL (11.4-16.0); Ketones,Urine Negative (Negative); Leukocyte Esterase,Urine Negative (Negative); Lymphocytes # (A) 2.8 k/uL (1.0-4.8); Lymphocytes % (A) 32 %; MCH 28.3 pg (25.0-35.0); MCHC 31.9 g/dL (31.0-37.0); MCV 88.7 fL (80.0-100.0); Mean Platelet Volume 8.1; Monocytes # (A) 0.4 k/uL (0-1.0); Monocytes % (A) 5 %; Neutrophils # (A) 5.2 k/uL (1.3-7.7); Neutrophils % (A) 59 %; Nitrite,Urine Negative (Negative); PH, Urine 6.5 (5.0-8.0); Platelet Count 290 k/uL (150-450); Protein,Urine Trace (Negative); RBC 4.72 m/uL (3.80-5.40); RDW 14.9 % (11.5-15.5); Urobilinogen,Urine <2.0 mg/dL (<2.0); WBC 8.8 k/uL (3.8-10.6)
--- NOTE | 2023-08-21 10:30 | ED ---
Abdominal Pain HPI - General Chief Complaint: Abdominal Pain Stated Complaint: Right side pain Time Seen by Provider: 08/21/23 10:02 Source: patient, RN notes reviewed Mode of arrival: ambulatory Limitations: no limitations - History of Present Illness Initial Comments: 58-year-old female with no significant past medical history presents the emergency department with a chief complaint of right flank pain. She reports worsening right flank pain since Wednesday08/16/2023. She reports that has progressively gotten worse. Originally was a dull ache that has become a sharp pain sometimes worse with movement. She reports that she has had this before she was her diverticulitis. She has not developed for her symptoms. She is unsure of any known fevers. She does report having increased urinary frequency. Denies dysuria or hematuria, vaginal bleeding, vaginal cramping, nausea or vomiting. - Related Data Home Medications Medication Instructions Recorded Confirmed amLODIPine [Norvasc] 5 mg PO QAM 08/19/20 12/02/22 FLUoxetine HCL [PROzac] 20 mg PO QAM 03/25/21 12/02/22 DULoxetine HCL [Cymbalta] 60 mg PO QAM 06/23/22 12/02/22 Ergocalciferol [Vitamin D2 (1250 1,250 mcg PO MALIN 06/23/22 12/02/22 Mcg = 80189 Iu)] HYDROcodone/APAP 7.5-325MG [[place] 1 tab PO Q6H PRN 06/23/22 12/02/22 7.5-325] Pitavastatin Calcium [Livalo] 4 mg PO DAILY 06/23/22 12/02/22 methocarbamoL [Robaxin-750] 750 mg PO TID PRN 06/23/22 12/02/22 Previous Rx's Medication Instructions Recorded Acetaminophen Tab [Tylenol] 650 mg PO Q6HR PRN tab 06/27/22 Cephalexin [Keflex] 500 mg PO Q8HR #15 cap 07/20/22 Ketorolac [Toradol] 10 mg PO Q6HR PRN #15 tab 07/20/22 Cyclobenzaprine [Flexeril] 5 mg PO TID PRN #15 tablet 08/21/23 Lidocaine 5% Patch [Lidoderm 5% 1 patch TOPICAL DAILY #5 patch 08/21/23 Patch] Allergies Allergy/AdvReac Type Severity Reaction Status Date / Time cigarette smoke Allergy Swelling Verified 08/21/23 09:51 eyes Iodinated Contrast Media Allergy Dyspnea Verified 08/21/23 09:51 lisinopril Allergy Swelling Verified 08/21/23 09:51 lips/angioedema Mushroom Allergy Itching Verified 08/21/23 09:51 shellfish derived [Shrimp] Allergy Itching Verified 08/21/23 09:51 Sulfa (Sulfonamide Allergy Unknown Verified 08/21/23 09:51 Antibiotics) tomato Allergy Itching Verified 08/21/23 09:51 Review of Systems ROS Statement: Those systems with pertinent positive or pertinent negative responses have been documented in the HPI. ROS Other: All systems not noted in ROS Statement are negative. Past Medical History Past Medical History: Hyperlipidemia, Hypertension Additional Past Medical History / Comment(s): chronic back pain, thyroid nodules History of Any Multi-Drug Resistant Organisms: None Reported Past Surgical History: Adenoidectomy, Section, Hysterectomy, Tonsillectomy Additional Past Surgical History / Comment(s): breast reduction, tummy tuck, hemorrhoid removal in June 2020 Past Anesthesia/Blood Transfusion Reactions: No Reported Reaction Additional Past Anesthesia/Blood Transfusion Reaction / Comment(s): no hx blood transfusion Past Psychological History: Depression Smoking Status: Never smoker Past Alcohol Use History: Occasional Past Drug Use History: Marijuana - Past Family History Mother Family Medical History: Cancer Additional Family Medical History / Comment(s): lung Father Family Medical History: COPD Additional Family Medical History / Comment(s): mesothelioma General Exam - General Exam Comments Initial Comments: General: Alert, in no acute distress Head: atraumatic normocephalic. Eyes PERRL, EOMI intact, mucous membranes moist Respiratory: Lungs clear to auscultation bilaterally Cardiovascular: Heart rate regular rate and rhythm Abdominal: Soft without guarding or rebound, no CVA tenderness Extremities: Normal inspection with full range of motion and normal capillary refill Neuroogic: alert and oriented 3, CN II-XII intact, able to ambulate with steady gait Skin: warm dry and intact with normal color Limitations: no limitations Course Vital Signs 08/21/23 08/21/23 09:51 11:39 Temperature 97 F L Pulse Rate 70 68 Respiratory 18 16 Rate Blood Pressure 133/71 135/68 O2 Sat by Pulse 99 98 Oximetry - Reevaluation(s) Reevaluation #1: 08/21/23 11:05 Should reevaluated and updated on CT results. Reports feeling pain. Patient offered IV meds for Lidoderm patch. Patient requesting Lidoderm patch. Medical Decision Making - Medical Decision Making Was pt. sent in by a medical professional or institution (WAYNE Baez, SOW FARM MANAGER, urgent care, hospital, or residential...) When possible be specific @ -[No] Did you speak to anyone other than the patient for history (EMS, parent, family, police, friend...)? What history was obtained from this source @ -[No] Did you review nursing and triage notes (agree or disagree)? Why? @ -[I reviewed and agree with nursing and triage notes] Were old charts reviewed (outside hosp., previous admission, EMS record, old EKG, old radiological studies, urgent care reports/EKG's, residential records)? Report findings @ -[No old charts were reviewed] Differential Diagnosis (chest pain, altered mental status, abdominal pain women, abdominal pain men, vaginal bleeding, weakness, fever, dyspnea, syncope, headache, dizziness, GI bleed, back pain, seizure, CVA, palpatations, mental health, musculoskeletal)? @ -[not applicable] EKG interpreted by me (3pts min.). @ -[As above] X-rays interpreted by me (1pt min.). @ -[None done] CT interpreted by me (1pt min.). @ -CT abdomen and pelvis does not reveal any marked process. There is incidental 3 mm stone in the left kidney that does not appear to be obstructive. U/S interpreted by me (1pt. min.). @ -[None done] What testing was considered but not performed or refused? (CT, X-rays, U/S, labs)? Why? @ -[None] What meds were considered but not given or refused? Why? @ -[None] Did you discuss the management of the patient with other professionals (professionals i.e. WAYNE Baez, SOW FARM MANAGER, lab, RT, psych nurse, psychotherapist social worker, senior power scheduler, teacher, officer lieutenant, sample case porter)? Give summary @ -[No] Was smoking cessation discussed for >3mins.? @ -[No] Was critical care preformed (if so, how long)? @ -[No] Were there social determinants of health that impacted care today? How? (Homelessness, low income, unemployed, alcoholism, drug addiction, transportation, low edu. Level, literacy, decrease access to med. care, long term, rehab)? @ -[No] Was there de-escalation of care discussed even if they declined (Discuss DNR or withdrawal of care, Hospice)? DNR status @ -[No] What co-morbidities impacted this encounter? (DM, HTN, Smoking, COPD, CAD, Cancer, CVA, ARF, Chemo, Hep., AIDS, mental health diagnosis, sleep apnea, morbid obesity)? @ -[None] Was patient admitted / discharged? Hospital course, mention meds given and route, prescriptions, significant lab abnormalities, going to OR and other pertinent info. @ Discharged. This is a pleasant 58-year-old -Sammarinese female presents to the emergency department with right lower back pain/flank pain. Patient had a thorough history and physical exam performed. Physical exam essentially unremarkable. Heart rate regular rate and rhythm, lungs are to auscultation bilaterally abdomen soft and nontender. No CVA tenderness. Patient had extensive laboratory and imaging studies which were negative. She was given Toradol, 1 L of IV fluids, Lidoderm patch with symptomatic improvement. I discussed the results in detail the patient verbalized understanding and all questions were addressed. She is agreeable with the plan for discharge home with recommended close follow-up with PCP in 1-2 days. Return precautions were discussed. Patient discharged in stable condition. Case discussed with Dr. Worthington [facility] who agrees with plan of care Undiagnosed new problem with uncertain prognosis? @ -[No] Drug Therapy requiring intensive monitoring for toxicity (Heparin, Nitro, Insulin, Cardizem)? @ -[No] Were any procedures done? @ -[No] Diagnosis/symptom? @ -Right flank pain - Low back pain Acute, or Chronic, or Acute on Chronic? @ -Acute Uncomplicated (without systemic symptoms) or Complicated (systemic symptoms)? @ -Uncomplicated Side effects of treatment? @ -[No] Exacerbation, Progression, or Severe Exacerbation? @ -[No] Poses a threat to life or bodily function? How? (Chest pain, [place], [place], pneumonia, PE, COPD, DKA, ARF, appy, cholecystitis, CVA, Diverticulitis, Homicidal, Suicidal, threat to staff... and all critical care pts) @ -Low likelihood - Lab Data Result diagrams: 08/21/23 10:12 08/21/23 10:12 Lab Results 08/21/23 08/21/23 08/21/23 Range/Units 10:12 10:12 10:12 WBC 8.8 (3.8-10.6) k/uL RBC 4.72 (3.80-5.40) m/uL Hgb 13.4 (11.4-16.0) gm/dL Hct 41.8 (34.0-46.0) % MCV 88.7 (80.0-100.0) fL MCH 28.3 (25.0-35.0) pg MCHC 31.9 (31.0-37.0) g/dL RDW 14.9 (11.5-15.5) % Plt Count 290 (150-450) k/uL MPV 8.1 Neutrophils % 59 % Lymphocytes % 32 % Monocytes % 5 % Eosinophils % 3 % Basophils % 0 % Neutrophils # 5.2 (1.3-7.7) k/uL Lymphocytes # 2.8 (1.0-4.8) k/uL Monocytes # 0.4 (0-1.0) k/uL Eosinophils # 0.3 (0-0.7) k/uL Basophils # 0.0 (0-0.2) k/uL Sodium 138 (137-145) mmol/L Potassium 4.7 (3.5-5.1) mmol/L Chloride 105 (98-107) mmol/L Carbon Dioxide 23 (22-30) mmol/L Anion Gap 10 mmol/L BUN 14 (7-17) mg/dL Creatinine 0.63 (0.52-1.04) mg/dL Est GFR (CKD-EPI)AfAm >90 (>60 ml/min/1.73 sqM) Est GFR (CKD-EPI)NonAf >90 (>60 ml/min/1.73 sqM) Glucose 101 H (74-99) mg/dL Calcium 10.3 H (8.4-10.2) mg/dL Total Bilirubin 0.5 (0.2-1.3) mg/dL AST 29 (14-36) U/L ALT 12 (4-34) U/L Alkaline Phosphatase 80 (38-126) U/L Total Protein 8.0 (6.3-8.2) g/dL Albumin 4.4 (3.5-5.0) g/dL Urine Color Yellow Urine Appearance Clear (Clear) Urine pH 6.5 (5.0-8.0) Ur Specific [place] 1.020 (1.001-1.035) Urine Protein Trace H (Negative) Urine Glucose (UA) Negative (Negative) Urine Ketones Negative (Negative) Urine Blood Negative (Negative) Urine Nitrite Negative (Negative) Urine Bilirubin Negative (Negative) Urine Urobilinogen <2.0 (<2.0) mg/dL Ur Leukocyte Esterase Negative (Negative) Disposition Clinical Impression: Flank pain, Back pain Disposition: HOME SELF-CARE Condition: Stable Instructions (If sedation given, give patient instructions): Muscle Strain (ED), Flank Pain (ED), Lower Back Exercises (ED) Additional Instructions: Please monitor symptoms closely Please return to the nearest emergency department if symptoms worsen or persist Prescriptions: Cyclobenzaprine [Flexeril] 5 mg PO TID PRN #15 tablet PRN Reason: Muscle Spasm Lidocaine 5% Patch [Lidoderm 5% Patch] 1 patch TOPICAL DAILY #5 patch Is patient prescribed a controlled substance at d/c from ED?: No Referrals: Yessica Herrmann MD [Primary Care Provider] - 1-2 days Time of Disposition: 11:22
[2023-08-21 10:41] LABS: ALT 12 U/L (4-34); AST 29 U/L (14-36); African American GFR (CKD) >90 (>60 ml/min/1.73 sqM); Albumin 4.4 g/dL (3.5-5.0); Alkaline Phosphatase 80 U/L (38-126); Anion Gap 10 mmol/L; Blood Urea Nitrogen 14 mg/dL (7-17); Calcium 10.3 mg/dL (8.4-10.2); Carbon Dioxide 23 mmol/L (22-30); Chloride 105 mmol/L (98-107); Glucose 101 mg/dL (74-99); Non-African American GFR(CKD) >90 (>60 ml/min/1.73 sqM); Potassium 4.7 mmol/L (3.5-5.1); Sodium 138 mmol/L (137-145); Total Bilirubin 0.5 mg/dL (0.2-1.3)
--- NOTE | 2023-08-21 10:57 | CT ---
EXAMINATION TYPE: CT abdomen pelvis wo con CT DLP: 486.5 mGycm, Automated exposure control for dose reduction was used. DATE OF EXAM: 08/21/2023 10:46 AM COMPARISON: CT abdomen pelvis most recent from 06/23/2022 CLINICAL INDICATION:Female, 58 years old with history of right flank pain; Right flank pain x 5 days TECHNIQUE: Axial CT of the abdomen and pelvis. Sagittal and coronal reformats were created on a [employer] workstation. Contrast used: mL of , (none if empty) Oral contrast used: without Oral Contrast (none if empty) FINDINGS: LOWER CHEST: Unremarkable ABDOMEN LIVER: Scattered simple appearing renal cysts. GALLBLADDER AND BILE DUCTS: Unremarkable. PANCREAS: Unremarkable. SPLEEN: Unremarkable. ADRENAL GLANDS: Unremarkable. KIDNEYS AND URETERS: Bilateral nonobstructing renal calculi r the right and 3 mm on the left. No uret eral calculus or hydronephrosis. PELVIS BLADDER: Unremarkable REPRODUCTIVE: Unremarkable. ABDOMEN & PELVIS STOMACH AND BOWEL: No evidence of bowel obstruction. Moderate amount of stool seen throughout the col on. Appendix is normal. Scattered colonic diverticula. PERITONEUM/RETROPERITONEUM: No evidence of pneumoperitoneum or free fluid. VASCULATURE: Mild atherosclerotic calcifications are present throughout the abdominal aorta and its b ranches. No evidence of aortic aneurysm. MUSCULOSKELETAL: No acute osseous abnormalities LYMPH NODES: No gross evidence for lymphadenopathy. SOFT TISSUE/ABDOMINAL WALL: Fat-containing umbilical hernia. IMPRESSION: 1. No evidence for acute right abdominal process to explain the patient's pain. There are multiple r enal calculi bilaterally without evidence for hydronephrosis or obstructive uropathy. 2. The appendix is normal. 3. Moderate amount of stool throughout the colon. 4. Colonic diverticulosis.
[2023-08-21] MEDS ORDERED: LIDOCAINE 5% PATCH TOPICAL SCH (11:15)
[2023-08-21 11:49] VITALS: BP 135/68; PULSE 68; RESP 16
== END 2023-08-21 11:40 | disposition home or self-care (01) ==
LOC: EC 09:49
DX: K57.30 Diverticulosis of large intestine without perforation or abscess without bleeding (principal); N20.0 Calculus of kidney; I10 Essential (primary) hypertension; E78.5 Hyperlipidemia, unspecified; F32.A Depression, unspecified; F12.90 Cannabis use, unspecified, uncomplicated; Z91.018 Allergy to other foods; Z91.013 Allergy to seafood; Z88.2 Allergy status to sulfonamides; Z88.8 Allergy status to other drugs, medicaments and biological substances; Z79.899 Other long term (current) drug therapy
CPT/HCPCS: 36415; 80053; 85025; 81003; 74176; 99284; 96361; 96374; J1885

== ENCOUNTER → 2023-11-16 | Outpatient (CLI) | payer BC ==
--- NOTE | 2023-11-16 13:56 | CA ---
Stress Echo Report Tiffanie Angel Age: 58 Gender: F : 1965 Exam Date: 11/16/2023 10:45 Exam Location: [place] Stress Ht (in): 67 Wt (lb): 160 Ordering Physician: Yessica Colon MD Referring Physician: YESSICA COLON,, Strawhat Inspector And Packer: SUSANA DIALLO Technologist Procedure CPT: Indication: R07.89 chest wall pain ICD-9 Codes: Rhythm: Patient History: Cardiac Medications: Medications in past 24 hours: Contrast: Definity Stress Results Protocol: Zaki Total dose(mL): 2 Exercise Duration (min:sec): 7:[address] Depression (mm): Angina Score: Aguilera Score: METS: 8.9 Resting HR: 69 Resting BP: 110 / 43 Peak HR: 141 Peak BP: 160 / 36 Max Predicted HR: 161 88 % Max Predicted HR Target HR: 137 Double Product: 20605 Stress Summary: BP Response: Reason for Termination: Reached target heart rate or work-load Cardiac Symptoms: NO SYMPTOMS ECG Analysis Resting ECG: Stress ECG: Arrhythmia: Echo Analysis Resting Echo: Peak Echo Analysis: MEASUREMENTS (Male/Female) Normal Values CONCLUSIONS Average exercise capacity on a Zaki protocol of 7-1/2 minutes. 8.9 mets of workload achieved Normal heart rate and blood pressure response No ECG or echocardiographic evidence for ischemia Dr. Jono Puckett MD (Electronically Signed) Final Date: 16 November 2023 13:55
== END | disposition home or self-care (01) ==
LOC: RADNMMAIN 10:13
PROVIDERS: ATTEND Family Medicine
DX: R07.89 Other chest pain (principal)
CPT/HCPCS: 93351

== ENCOUNTER → 2025-04-23 | Outpatient (CLI) | payer BC ==
--- NOTE | 2025-04-24 07:45 | MM ---
Reason for Exam: Screening (asymptomatic). Last mammogram was performed 3 year(s) and 8 month(s) ago. Patient History: Menarche at age 12. First Full-Term at age 24. Left ovary removed at age 43. Right ovary removed at age 43. Postmenopausal. Patient has history of breast feeding. Currently using Estrogen, starting at age 51. Progesterone, from age 51 until age 53. 1987, Bilateral Reduction. Risk Values: Aretha 5 year model risk: 1.4%. NCI Lifetime model risk: 6.9%. Prior Study Comparison: 09/02/2017 Bilateral Diagnostic Mammogram, [facility]. 12/27/2018 Bilateral Diagnostic Mammogram, [facility]. 08/12/2021 Bilateral Diagnostic Mammogram, [facility]. Tissue Density: There are scattered areas of fibroglandular density. Findings: Analyzed By CAD. Right breast: There is no suspicious group of microcalcifications or new suspicious mass. Left breast: There is no suspicious group of microcalcifications or new suspicious mass. Overall Assessment: Negative, BI-RAD 1 Management: Screening Mammogram of both breasts in [address] [facility] will attempt to contact patient to return for supplemental views and ultrasound if indicated. Patient should continue monthly self-breast exams. A clinical breast exam by your physician is recommended on an annual basis. This exam should not preclude additional follow-up of suspicious palpable abnormalities. Note on Aretha scores and lifetime risk: 1. A Aretha score greater than 3% is considered moderate risk. If this is the case, consider specialist referral to assess eligibility for a risk reducing agent. 2. If overall lifetime risk for the development of breast cancer is 20% or higher, the patient may qualify for future screening with alternating mammogram and breast MRI. [facility], , 04/24/2025 7:42 AM. Electronically signed and approved by: Ryan Murdock DO
--- NOTE | 2025-04-24 13:26 | BD ---
EXAMINATION TYPE: Axial Bone Density DATE OF EXAM: 04/23/2025 CLINICAL HISTORY: 59 years old Female. ICD-10 CODE: R7709 ABNORMALITY OF PLASMA PROTE , Additional H istory: Height: 5 ft 7 in Weight: 163 FRAX RISK QUESTIONS: Alcohol (3 or more units per day): no Family History (Parent hip fracture): no Glucocorticoids (More than 3mos): no (Ex: prednisone, prednisolone, methylprednisolone, dexamethasone, and hydrocortisone). History of Fracture in Adulthood: yes Secondary Osteoporosis: 1. Type 1 Diabetes: no 2. Hyperthyroidism: nodules 3. Menopause before 45: yes 4. Malnutrition: no 5. Chronic liver disease: no Rheumatoid Arthritis: yes Current Tobacco Use: no RISK FACTORS HISTORY OF: Surgery to Spine/Hip(right/left)/Wrist (right/left): no MEDICATIONS: Thyroid Medications: none Osteoporosis Medications: none EXAM MEASUREMENTS: Bone mineral densitometry was performed using the [employer] Mobile System. Bone mineral density as measured about the Lumbar spine is: ----- L1-L4(G/cm2): 1.334 T Score Values are as follows: ----- L1: 0.4 ----- L2: 1.4 ----- L3: 1.9 ----- L4: 1.5 ----- L1-L4: 1.3 Z Score Values are as follows: ----- L1: 0.7 ----- L2: 1.6 ----- L3: 2.1 ----- L4: 1.7 ----- L1-L4: 1.5 Bone mineral density has: decreased -5.9 % since study of: 2021 Bone mineral density about the R hip (g/cm2): 0.719 Bone mineral density about the L hip (g/cm2): 0.856 T Score values are as follows: -----R Neck: -2.3 -----L Neck: -1.3 -----R Total: -1.6 -----L Total: -1.1 Z Score values are as follows: -----R Neck: -2.1 -----L Neck: -1.2 -----R Total: -1.8 -----L Total: -1.3 Bone mineral density has: decreased -8.4 % since study of: 2021 FRAX%s: The graph provided illustrates a 13.8 % chance for a major osteoporotic fx and a 2.7 % chance for the hips probability for fx in 10 years time. IMPRESSION: Osteopenia (T Score between -2.5 and -1). There is slightly increased risk of fracture and the patient may be considered for treatment. Re-Screen 2-5 years. NOTE: T-SCORE=SD OF THE YOUNG ADULT MEAN. [facility], , 04/24/2025 1:23 PM
== END | disposition home or self-care (01) ==
LOC: RADMAMWWP 15:58
PROVIDERS: ATTEND Family Medicine
DX: Z12.31 Encounter for screening mammogram for malignant neoplasm of breast (principal); R77.9 Abnormality of plasma protein, unspecified; R92.323 Mammographic fibroglandular density, bilateral breasts; M85.89 Other specified disorders of bone density and structure, multiple sites; Z78.0 Asymptomatic menopausal state
CPT/HCPCS: 77063; 77067; 77080